=== PATIENT | male | born 1975 | race Caucasian/White ===

== ENCOUNTER 2020-01-30 09:12 | Outpatient (REF) | payer OTHER, SELFPAY ==
[2020-01-30 11:50] LABS: Alanine Aminotransferase 22 U/L (0-40); Anion Gap 13 (12-20); Aspartate Amino Transferase 21 U/L (5-37); Blood Urea Nitrogen 13 mg/dL (9-16); Calcium 9.4 mg/dL (8.4-10.2); Carbon Dioxide 28 mmol/L (22-29); Chloride 102 mmol/L (96-108); Cholesterol 187 mg/dL; Estimated Glomerular Filt Rate > 60; Glucose Fasting 93 mg/dL (60-99); HDL Cholesterol 44 mg/dL; LDL Cholesterol Calculated 119 mg/dl; Potassium 4.3 mmol/l (3.3-5.1); Sodium 139 mmol/L (135-145); Triglycerides 123 mg/dL
[2020-01-30 11:58] LABS: Free T4 (Free Thyroxine) 0.98 ng/dL (0.71-1.85); Thyroid Stimulating Hormone 7.59 mIU/mL (0.32-4.0)
== END 2020-01-30 09:13 | disposition home or self-care (01) ==
LOC: HO.HMGCLDS 09:12
PROVIDERS: PCP Internal Medicine; Visit Provider Internal Medicine
DX: Z00.01 Encounter for general adult medical examination with abnormal findings (principal); E03.9 Hypothyroidism, unspecified; G47.33 Obstructive sleep apnea (adult) (pediatric); E66.01 Morbid (severe) obesity due to excess calories; I10 Essential (primary) hypertension
CPT/HCPCS: 80048; 80061; 84439; 84443; 84450; 84460

== ENCOUNTER 2020-08-13 08:32 | Outpatient (REF) | payer OTHER, SELFPAY ==
[2020-08-13 12:10] LABS: Free T4 (Free Thyroxine) 0.71 ng/dL (0.71-1.85); Thyroid Stimulating Hormone 13.03 uIU/mL (0.32-4.0)
[2020-08-13 12:16] LABS: Anion Gap 13 (12-20); Blood Urea Nitrogen 14 mg/dL (9-16); Calcium 9.5 mg/dL (8.4-10.2); Carbon Dioxide 27 mmol/L (22-29); Chloride 103 mmol/L (96-108); Cholesterol 190 mg/dL; Estimated Glomerular Filt Rate > 60; Glucose Fasting 91 mg/dL (60-99); HDL Cholesterol 45 mg/dL; LDL Cholesterol Calculated 121 mg/dl; Potassium 4.2 mmol/L (3.3-5.1); Sodium 139 mmol/L (135-145); Triglycerides 123 mg/dL
== END 2020-08-13 08:33 | disposition home or self-care (01) ==
LOC: HO.HMGCLDS 08:32
PROVIDERS: PCP Internal Medicine; Visit Provider Internal Medicine
DX: E03.9 Hypothyroidism, unspecified (principal); E66.01 Morbid (severe) obesity due to excess calories; I10 Essential (primary) hypertension
CPT/HCPCS: 36415; 80048; 80061; 84439; 84443

== ENCOUNTER 2020-08-21 08:39 | Outpatient (REF) | payer OTHER, SELFPAY ==
--- NOTE | ~2020-08-21 | XR_ITS ---
EXAMINATION: XR SHOULDER, RIGHT CLINICAL INFORMATION: Strain of unspecified muscle, fascia, and tendon. COMPARISON: None TECHNIQUE: Grashey, scapular Y, and axillary views of the right shoulder. FINDINGS: No acute fracture or dislocation. Mild glenohumeral joint space narrowing with tiny posterior marginal osteophytes. Along the inferior margin of the glenoid there is a 0.5 cm ossification which could represent a loose body versus unfused osteophyte. No lytic or blastic osseous lesion. XR/XR shoulder RT min 2V IMPRESSION: Mild glenohumeral osteoarthritis. Along the inferior margin of the glenoid there is a 0.5 cm loose body versus unfused osteophyte.
== END 2020-08-21 08:40 | disposition home or self-care (01) ==
LOC: HO.HOSX 08:39
PROVIDERS: Visit Provider Physician Assistant
DX: S46.911D Strain of unspecified muscle, fascia and tendon at shoulder and upper arm level, right arm, subsequent encounter (principal); M75.80 Other shoulder lesions, unspecified shoulder
CPT/HCPCS: 20610; 73030; 99202

== ENCOUNTER 2020-09-04 12:32 | Outpatient (REF) | payer OTHER, SELFPAY ==
--- NOTE | ~2020-09-04 | MR_ITS ---
EXAMINATION: MR SHOULDER WITHOUT CONTRAST, RIGHT CLINICAL INFORMATION: Injury, pain. COMPARISON: None TECHNIQUE: MRI of the shoulder without contrast was performed on a high-field scanner. FINDINGS: ROTATOR CUFF: Mild supraspinatus tendinosis. Infraspinatus, teres minor is intact. Mild subscapularis tendinosis with deep surface fraying/partial tearing. No muscle atrophy or fatty infiltration. BICEPS: Intact. CORACOACROMIAL ARCH: The undersurface of the acromion is mildly curved with no subacromial spur. The acromioclavicular joint is normal. LABRUM/CAPSULE: No focal labral tear is seen. Mild edema and thickening of the inferior capsule/ligament. GLENOHUMERAL JOINT/MARROW: No fracture. Small joint fluid. No suspicious marrow signal changes. MR/MR shoulder RT wo con IMPRESSION: 1. Mild supraspinatus tendinosis. Mild subscapularis tendinosis with articular-sided fraying/partial tearing. 2. Edema and thickening of the inferior capsule/ligament, could be related to injury or capsulitis.
== END 2020-09-04 12:33 | disposition home or self-care (01) ==
LOC: HO.MRI 12:32
PROVIDERS: PCP Internal Medicine; Visit Provider Hospitalist
DX: S46.911D Strain of unspecified muscle, fascia and tendon at shoulder and upper arm level, right arm, subsequent encounter (principal)
CPT/HCPCS: 73221

== ENCOUNTER → 2020-09-23 10:52 | Outpatient (BNVA) | payer OTHER, SELFPAY | PROVIDERS: PCP Internal Medicine; Visit Provider Physician Assistant | DX: M75.41 Impingement syndrome of right shoulder (principal) | CPT/HCPCS: 99212 ==

== ENCOUNTER → 2020-11-18 09:39 | Outpatient (BNVA) | payer OTHER, SELFPAY | PROVIDERS: Visit Provider Physician Assistant | DX: M75.41 Impingement syndrome of right shoulder (principal) | CPT/HCPCS: 99212 ==

== ENCOUNTER 2020-11-19 09:00 | Outpatient (RCR) | payer OTHER, SELFPAY ==
--- NOTE | 2020-09-09 10:28 | MHC.PT.EP ---
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 Pt IS RIGHT HAND DOMINANT- HE PRESENTS WITH LIMITED Rt SH ROM, DECR STRENGTH, DECR POSTURAL AWARENESS, AND PAIN W PALP Rt ANT SH/ (+) IMPINGEMENT SIGN. FUNCTIONALLY, Pt IS LIMITED W SL Rt, LIFTING, CARRYING HEAVIER ITEMS, AND MORE PHYSICALLY DEMANDING TASKS. Pt WOULD BENEFIT FROM PT TO ADDRESS Rt SH IMPINGEMENT SYNDROME AND FINDINGS ON MRI (Mild supraspinatus tendinosis. Mild subscapularis tendinosis with articular-sided fraying/partial tearing. PLEASE SEE RESULTS ABOVE) AND ASSIST Pt W REGAINING FUNCTIONAL INDEPENDENCE. 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 Manual therapy to restore motion and function. Therapeutic exercise to improve strength and flexibility. Neuromuscular re-education for posture and balance. Therapeutic activities to return to functional activities of daily living. Electronically signed by: Bernie August,PT Please sign and return to therapist. Thank you for your referral.
--- NOTE | 2020-12-23 16:35 | MHC.PT.DC ---
[facility] [place] Office [place] Office [place] Office [address] Nancie Son 140 [facility] [phone] F: [phone] F: [phone] F: [phone] F: [phone] Physical Therapy Discharge Report Diagnosis: IMPINGEMENT OF THE RIGHT SHOULDER Date of Surgery: Date of Evaluation: 09/09/20 Date of Discharge: 11/19/20 Treatments to Date: 20 Cancellations to Date: 0 No Shows to Date: 0 Discharge Status: Achieved Goals Improved Function Independent with HEP Discharge Summary: Electronically signed by: Rex Proctor PT. Please sign and return to therapist. Thank you for your referral.
== END 2020-12-23 16:36 | disposition home or self-care (01) ==
LOC: HO.PTCHIC 09:00
PROVIDERS: PCP Internal Medicine; Visit Provider Physician Assistant
DX: M77.8 Other enthesopathies, not elsewhere classified (principal); M75.41 Impingement syndrome of right shoulder; M75.80 Other shoulder lesions, unspecified shoulder
CPT/HCPCS: 97110; 97140; 97161; 97530

== ENCOUNTER 2020-12-25 08:58 | Outpatient (REF) | payer OTHER, SELFPAY ==
[2020-12-25 12:07] LABS: Thyroid Stimulating Hormone 0.14 uIU/mL (0.32-4.0)
[2020-12-26 09:42] LABS: Thyroid Peroxidase Antibodies 253 IU/mL (<9)
== END 2020-12-25 08:59 | disposition home or self-care (01) ==
LOC: HO.HMGCLDS 08:58
PROVIDERS: PCP Internal Medicine; Visit Provider Internal Medicine
DX: E03.9 Hypothyroidism, unspecified (principal)
CPT/HCPCS: 36415; 84439; 84443; 86376

== ENCOUNTER 2021-10-12 06:14 | Outpatient (REF) | payer OTHER, SELFPAY ==
[2021-10-12 12:30] LABS: Free T4 (Free Thyroxine) 0.75 ng/dL (0.71-1.85); Thyroid Stimulating Hormone 12.24 uIU/mL (0.32-4.0)
[2021-10-12 12:41] LABS: Alanine Aminotransferase 20 U/L (0-40); Anion Gap 12 (12-20); Aspartate Amino Transferase 20 U/L (5-37); Blood Urea Nitrogen 16 mg/dL (9-16); Calcium 8.9 mg/dL (8.4-10.2); Carbon Dioxide 26 mmol/L (22-29); Chloride 104 mmol/L (96-108); Cholesterol 186 mg/dL; Estimated Glomerular Filt Rate > 60; Glucose Fasting 106 mg/dL (60-99); HDL Cholesterol 35 mg/dL; LDL Cholesterol Calculated 126 mg/dl; Potassium 4.2 mmol/L (3.3-5.1); Sodium 138 mmol/L (135-145); Triglycerides 126 mg/dL
[2021-10-14 11:02] LABS: Thyroid Peroxidase Antibodies 387 IU/mL (<9)
== END 2021-10-12 06:15 | disposition home or self-care (01) ==
LOC: HO.HMGCLDS 06:14
PROVIDERS: PCP Internal Medicine; Visit Provider Internal Medicine
DX: Z00.01 Encounter for general adult medical examination with abnormal findings (principal); E03.9 Hypothyroidism, unspecified; I10 Essential (primary) hypertension; E66.01 Morbid (severe) obesity due to excess calories
CPT/HCPCS: 36415; 80048; 80061; 84439; 84443; 84450; 84460; 86376

== ENCOUNTER 2021-12-15 08:36 | Outpatient (REF) | payer OTHER, SELFPAY ==
[2021-12-15 12:02] LABS: Free T4 (Free Thyroxine) 0.75 ng/dL (0.71-1.85); Thyroid Stimulating Hormone 20.37 uIU/mL (0.32-4.0)
[2021-12-16 20:51] LABS: Thyroid Peroxidase Antibodies 739 IU/mL (<9)
== END 2021-12-15 08:37 | disposition home or self-care (01) ==
LOC: HO.HMGCLDS 08:36
PROVIDERS: PCP Internal Medicine; Visit Provider Internal Medicine
DX: E03.9 Hypothyroidism, unspecified (principal)
CPT/HCPCS: 36415; 84439; 84443; 86376

== ENCOUNTER 2022-02-09 10:25 | Outpatient (REF) | payer OTHER, SELFPAY ==
[2022-02-09 12:39] LABS: Estimated Average Glucose 117 mg/dL; Hemoglobin A1c % 5.7 %
[2022-02-09 13:08] LABS: Alanine Aminotransferase 16 U/L (0-40); Anion Gap 17 (12-20); Aspartate Amino Transferase 17 U/L (5-37); Blood Urea Nitrogen 14 mg/dL (9-16); Calcium 9.2 mg/dL (8.4-10.2); Carbon Dioxide 25 mmol/L (22-29); Chloride 101 mmol/L (96-108); Cholesterol 199 mg/dL; Estimated Glomerular Filt Rate > 60; Glucose Fasting 85 mg/dL (60-99); HDL Cholesterol 39 mg/dL; LDL Cholesterol Calculated 133 mg/dl; Potassium 4.7 mmol/L (3.3-5.1); Sodium 138 mmol/L (135-145); Triglycerides 135 mg/dL
== END 2022-02-09 10:26 | disposition home or self-care (01) ==
LOC: HO.HMGCLDS 10:25
PROVIDERS: PCP Internal Medicine; Visit Provider Internal Medicine
DX: Z00.01 Encounter for general adult medical examination with abnormal findings (principal); R73.01 Impaired fasting glucose; E66.01 Morbid (severe) obesity due to excess calories; E03.9 Hypothyroidism, unspecified
CPT/HCPCS: 36415; 80048; 80061; 83036; 84439; 84443; 84450; 84460

== ENCOUNTER → 2022-05-05 10:02 | Outpatient (BNVA) | payer OTHER, SELFPAY | PROVIDERS: PCP Internal Medicine; Visit Provider Nurse Practitioner Family | DX: G47.33 Obstructive sleep apnea (adult) (pediatric) (principal); R06.83 Snoring; E66.01 Morbid (severe) obesity due to excess calories; Z68.41 Body mass index [BMI] 40.0-44.9, adult | CPT/HCPCS: 99202 ==

== ENCOUNTER 2022-05-17 08:36 | Outpatient (REF) | payer OTHER, SELFPAY ==
[2022-05-17 12:06] LABS: Alanine Aminotransferase 20 U/L (0-40); Aspartate Amino Transferase 17 U/L (5-37); Cholesterol 197 mg/dL; HDL Cholesterol 44 mg/dL; LDL Cholesterol Calculated 131 mg/dl; Triglycerides 113 mg/dL
[2022-05-17 12:09] LABS: Free T4 (Free Thyroxine) 0.81 ng/dL (0.71-1.85); Thyroid Stimulating Hormone 7.11 uIU/mL (0.32-4.0)
== END 2022-05-17 08:37 | disposition home or self-care (01) ==
LOC: HO.HMGCLDS 08:36
PROVIDERS: PCP Internal Medicine; Visit Provider Internal Medicine
DX: E03.9 Hypothyroidism, unspecified (principal); E66.01 Morbid (severe) obesity due to excess calories; E78.5 Hyperlipidemia, unspecified
CPT/HCPCS: 36415; 80061; 84439; 84443; 84450; 84460

== ENCOUNTER → 2022-06-08 09:49 | Outpatient (REF) | payer OTHER, SELFPAY | LOC: HO.SL 09:49 | PROVIDERS: Visit Provider Nurse Practitioner Family | DX: G47.33 Obstructive sleep apnea (adult) (pediatric) (principal); R06.83 Snoring; E66.01 Morbid (severe) obesity due to excess calories | CPT/HCPCS: 95806 ==

== ENCOUNTER 2022-06-16 10:26 | Outpatient (AMB) | payer OTHER, SELFPAY ==
--- NOTE | 2022-06-16 10:30 | A.OFFPC_ITS ---
Vital Signs 06/16/22 10:31 Height 5 ft 6 in Weight 264 lb BMI 42.6 BP 132/90 H Blood Pressure Location Lt brachial Position Sitting Pulse 78 Pulse Source Pulse Oximeter Pulse Oximetry (%) 99 Oxygen Delivery Method Room Air Intake Visit Reasons: 3 month follow up/ R/S from 06/07 Intake Note: Pt is here today for his 3 months f/u labs Allergies Penicillins Allergy (Unknown, Verified 04/24/25 12:07) hives Tobacco use date assessed: 06/16/22 [facility] Medical History Toenail deformity Dyslipidemia Impaired fasting glucose Post-COVID syndrome Intellectual disability Morbid obesity History of depression History of migraine Obstructive sleep apnea Acquired hypothyroidism Surgical History Hx of colonoscopy Hx of laparoscopic gastric banding Family History Father Myocardial infarction CVD (cardiovascular disease) Mother No problems noted. Brother No problems noted. Brother No problems noted. 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 1. Little interest or pleasure in doing things: not at all 2. Feeling down, depressed, or hopeless: not at all 3. Trouble falling or staying asleep, or sleeping too much: not at all 4. Feeling tired or having little energy: not at all 5. Poor appetite or overeating: not at all 6. Feeling bad about yourself - or that you are a failure or have let yourself or your family down: not at all 7. Trouble concentrating on things, such as reading the newspaper or watching television: not at all 8. Moving or speaking so slowly that other people could have noticed. Or the opposite - being so fidgety or restless that you have been moving around a lot more than usual: not at all 9. Thoughts that you would be better off or of hurting yourself in some way: not at all Total score: 0 Source: Developed by Drs. Tylor Strickland, Yamileth Last, Ean Gilmore and colleagues, with an educational lauri from [employer]. Thrive Questionnaire Declines Thrive assessment: No Date Thrive assessed: 06/16/22 I am a: Patient What is your living situation today?: I have a steady place to live Within the past 12 months, did the food you bought not last and you didn't have the money to get more?: Never true Within the past 12 months, did you worry whether your food would run out before you got money to buy more?: Never true Do you have trouble paying for medicines?: No Do you have trouble getting transportation to medical appointments?: No Do you have trouble paying your heating and electricity bill?: No Do you have trouble taking care of your child, family member or friend?: No Do you have trouble with day-to-day activities such as bathing, preparing meals, shopping, managing finances, etc.?: No Are you currently unemployed and looking for a job?: No Are you interested in more education?: No AUDIT C Alcohol Use Questionnaire (AUDIT-C) 1. How often do you have a drink containing alcohol?: Never Total Score: 0 ALEJANDRA-7 AMB Questionnaire ALEJANDRA-7 Date ALEJANDRA - 7 assessed: 06/16/22 Feeling nervous, anxious, or on edge: 0 = Not at all Not being able to stop or control worryin = Not at all Worrying too much about different things: 0 = Not at all Trouble relaxin = Not at all Being so restless that it is hard to sit still: 0 = Not at all Becoming easily annoyed or irritable: 0 = Not at all Feeling afraid as if something awful might happen: 0 = Not at all Total ALEJANDRA-7 score (0-4 normal; 5-9 mild; 10-14 moderate; 15-21 severe): 0 Source: Developed by Drs. Tylor Strickland, Yamileth Last, Ean Gilmore and colleagues, with an educational lauri from [employer]. Physical exam (Primary Care) Vital Signs: Last Vital Signs Pulse 78 06/16/22 10:31 BP 132/90 H 06/16/22 10:31 Pulse Ox 99 06/16/22 10:31 Oxygen Delivery Method Room Air 06/16/22 10:31 BMI result Body Mass Index 42.6 Tobacco/Smoking Status: Tobacco use Status Tobacco use date assessed 06/16/22 06/16/22 10:35 Patient Tobacco Use Status Never used Tobacco 06/16/22 10:35 e-Cigarette/Vaping Use Never Used 06/16/22 10:35 PHQ-9: PHQ-9 Score PHQ-9: Total score 0 05/12/25 00:19 Thrive Assessment: Date of Thrive Assessment Date Thrive assessed 06/16/22 06/16/22 11:13 Coding Level of Care Code Admin Sign Off/No Billing Diagnoses Acquired hypothyroidism E03.9
[2022-06-16 10:31] VITALS: BP 132/90; PULSE 78; O2SAT 99; BMI 42.6
== END 2022-06-16 11:07 | disposition home or self-care (01) ==
LOC: HO.HMGC 10:26
PROVIDERS: PCP Internal Medicine; Visit Provider Internal Medicine
DX: E03.9 Hypothyroidism, unspecified (principal)
CPT/HCPCS: 99499

== ENCOUNTER → 2022-06-23 11:34 | Outpatient (BNVA) | payer OTHER, SELFPAY | PROVIDERS: PCP Internal Medicine; Visit Provider Nurse Practitioner Family | DX: R06.83 Snoring (principal); G47.33 Obstructive sleep apnea (adult) (pediatric); E66.01 Morbid (severe) obesity due to excess calories; Z98.84 Bariatric surgery status | CPT/HCPCS: 99212 ==

== ENCOUNTER 2022-09-14 08:27 | Outpatient (REF) | payer OTHER, SELFPAY ==
[2022-09-14 11:58] LABS: Free T4 (Free Thyroxine) 0.99 ng/dL (0.71-1.85); Thyroid Stimulating Hormone 1.76 uIU/mL (0.32-4.0)
== END 2022-09-14 08:28 | disposition home or self-care (01) ==
LOC: HO.HMGCLDS 08:27
PROVIDERS: PCP Internal Medicine; Visit Provider Internal Medicine
DX: E03.9 Hypothyroidism, unspecified (principal)
CPT/HCPCS: 36415; 84439; 84443

== ENCOUNTER → 2022-09-26 11:24 | Outpatient (BNVA) | payer OTHER, SELFPAY | PROVIDERS: PCP Internal Medicine; Visit Provider Nurse Practitioner Family | DX: G47.33 Obstructive sleep apnea (adult) (pediatric) (principal) | CPT/HCPCS: 99212 ==

== ENCOUNTER 2022-12-28 11:09 | Outpatient (AMB) | payer OTHER, SELFPAY ==
--- NOTE | 2022-12-28 11:26 | MHC.OFFVIS ---
Intake Vital Signs 12/28/22 11:28 Weight 264 lb 2 oz BP 122/82 Blood Pressure Location Rt brachial Position Sitting Pulse 73 Pulse Source Pulse Oximeter Pulse Oximetry (%) 97 Intake Visit Reasons: 3m follow up TREVON/SNORING - Confirmed Intake Note: F/U TREVON Associate Curator Required: No Allergies Penicillins Allergy (Unknown, Verified 01/03/23 08:56) hives HPI HPI Comments History of Present Illness Details 46 y/o male patient presents for follow up of TREVON on CPAP. The home sleep study result was significant for a mild degree of sleep apnea. The AHI was 10/hr and oxygen trinity was 84%. Pt started APAP [id number]. He is compliant CPAP. The average usage hours 7 hrs. The residual AHI was 0.3 Pt is very happy about CPAP. He sleeps well with it and no snoring, refreshed in the morning and has more energy during daytime. [facility] Medical History Dyslipidemia Impaired fasting glucose Post-COVID syndrome Intellectual disability Right shoulder tendonitis Morbid obesity History of depression History of migraine Obstructive sleep apnea Acquired hypothyroidism Surgical History Hx of laparoscopic gastric banding Family History Father Myocardial infarction CVD (cardiovascular disease) Mother No problems noted. Brother No problems noted. Brother No problems noted. 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 needs: No Hearing needs: No Vision needs: Yes Review of Systems Const All systems reviewed & are unremarkable except as noted in HPI and below ENT Reports Normal hearing present Neuro Reports Normal hearing present Physical Exam Vital Signs: Last Vital Signs Pulse 73 12/28/22 11:28 BP 122/82 12/28/22 11:28 Pulse Ox 97 12/28/22 11:28 Const General: cooperative Nutritional Appearance: obese Orientation/consciousness: patient oriented x3 HEENT Throat: Yes other (mallampati grade 4) Neck Neck: Yes full ROM and Yes supple Resp Effort & Inspection: normal respiratory effort and able to speak in complete sentences Neuro General: patient oriented x3, gait normal and moves all extremities Cranial nerves: Yes Bilaterally intact EOM present, Yes Normal facial strength present, Yes Midline tongue present, Yes Normal hearing present, Yes Ability to bilaterally rotate head present and Yes Ability to bilaterally elevate shoulders present Cognition (Neuro): normal cognition Psych Appearance: grossly normal Mental Status: mental status grossly normal Speech and movement: Normal speech and movement present Affect: normal affect Attitude: cooperative Assessment & Plan Assessment & Plan (1) Obstructive sleep apnea: Comment: A mild degree of sleep apnea. The AHI was 10/hr and oxygen trinity was 84%.started CPAP 07/2022, Code(s): G47.33 - Obstructive sleep apnea (adult) (pediatric) Plan Continue to use APAP [id number] as patient experiences good clinical effects. Stressed compliance, use CPAP nightly and more than 4 hours. Wt reduction advised. Coding Level of Care Code Est Pt Level 3 (47146) Diagnoses Obstructive sleep apnea G47.33
[2022-12-28 11:28] VITALS: BP 122/82; PULSE 73; O2SAT 97
== END 2022-12-28 12:02 | disposition home or self-care (01) ==
PROVIDERS: PCP Internal Medicine; Visit Provider Nurse Practitioner Family
DX: G47.33 Obstructive sleep apnea (adult) (pediatric) (principal)
CPT/HCPCS: 99213

== ENCOUNTER → 2022-12-28 11:09 | Outpatient (BNVA) | payer OTHER, SELFPAY | PROVIDERS: PCP Internal Medicine; Visit Provider Nurse Practitioner Family | DX: G47.33 Obstructive sleep apnea (adult) (pediatric) (principal) | CPT/HCPCS: 99212 ==

== ENCOUNTER 2023-01-03 08:47 | Outpatient (REF) | payer OTHER, SELFPAY ==
[2023-01-03 09:46] LABS: MANUAL DIFF FLAG NO
[2023-01-03 10:35] LABS: Basophils Absolute Auto 0.1 X10*3/uL (0.0-0.2); Basophils Percent Auto 0.6 % (0-2); Eosinophils Absolute Auto 0.1 X10*3/uL (0.0-0.4); Eosinophils Percent Auto 1.8 % (0-4); Hematocrit 50.3 % (42.0-52.0); Hemoglobin 16.8 g/dl (14.0-18.0); Imm Gran Abs Auto 0.02 X10*3/uL (0.00-0.03); Imm Gran Pct Auto 0.3 % (0.0-0.4); Lymphocytes Percent Auto 26.1 % (20-40); Mean Corpuscular HGB Conc 33.4 g/dl (31.0-36.0); Mean Corpuscular Hemoglobin 28.9 pg (27.0-33.0); Mean Corpuscular Volume 86.6 fL (80.0-98.0); Mean Platelet Volume 8.4 fL (9.4-12.4); Monocytes Absolute Auto 0.5 X10*3/uL (0.1-1.2); Monocytes Percent Auto 6.3 % (2-11); Neutrophils Percent Auto 64.9 % (45-73); Platelet Count 301 X10*3/uL (160-400); Red Blood Count 5.81 X10*6/uL (4.60-5.80); Red Cell Distribution Width 13.5 % (11.0-16.0); White Blood Count 7.7 X10*3/uL (4.8-10.8)
[2023-01-03 11:05] LABS: Alanine Aminotransferase 23 U/L (0-40); Albumin Level 4.3 g/dL (3.5-5.0); Alkaline Phosphatase 36 U/L (39-117); Anion Gap 15 (12-20); Aspartate Amino Transferase 18 U/L (5-37); Bilirubin Total 0.5 mg/dL (0.0-1.0); Blood Urea Nitrogen 13 mg/dL (9-16); Calcium 9.5 mg/dL (8.4-10.2); Carbon Dioxide 25 mmol/L (22-29); Chloride 101 mmol/L (96-108); Estimated Glomerular Filt Rate > 60; Glucose Random 97 mg/dL (60-115); Potassium 4.1 mmol/L (3.3-5.1); Sodium 137 mmol/L (135-145); Total Protein 7.8 g/dL (6.5-8.0)
== END 2023-01-03 08:48 | disposition home or self-care (01) ==
LOC: HO.LAB 08:47
PROVIDERS: PCP Internal Medicine; Visit Provider Nurse Practitioner
DX: Z01.818 Encounter for other preprocedural examination (principal); F79 Unspecified intellectual disabilities; G47.33 Obstructive sleep apnea (adult) (pediatric); E66.01 Morbid (severe) obesity due to excess calories
CPT/HCPCS: 36415; 80053; 85025

== ENCOUNTER 2023-02-24 08:54 | Outpatient (AMB) | payer OTHER, SELFPAY ==
--- NOTE | 2023-02-24 08:56 | A.OFFPC_ITS ---
Vital Signs 02/24/23 08:57 Height 5 ft 6 in Weight 270 lb 4 oz BMI 43.6 BP 130/88 Blood Pressure Location Rt brachial Position Sitting Pulse 78 Pulse Source Pulse Oximeter Pulse Oximetry (%) 98 Oxygen Delivery Method Room Air Intake Visit Reasons: PE/Ok by Estephania Intake Note: pt is here for a PE Allergies Penicillins Allergy (Unknown, Verified 02/24/23 09:11) hives Medication List - Last Reconciled 02/24/23 by Chayito Diaz MD levothyroxine 175 mcg PO DAILY multivitamin PO every morning; peg 3350-electrolytes 236-22.74-6.74 -5.86 gram (Golytely) 240 mL PO Q10M 1 day vitamin D3-vitamin K2 25 mcg (1,000 unit)-90 mcg 1 tab PO DAILY Tobacco use date assessed: 02/24/23 Dental Screening Dental Screen Date: 02/24/23 Did you have a dental visit in the last 12 months?: Yes Did you have a dental problem in the last 6 months where you did not have access to dental care?: No Was dental information given to patient?: Patient has dentist HPI PE/Ok by Estephania HPI Details 47-year-old male with morbid obesity, Youssef shimoto's thyroiditis with acquired hypothyroidism, has dyslipidemia, prediabetes and give sleep appt currently followed by the sleep clinic, here today for physical exam. He is already scheduled for screening colonoscopy at the end of the month. Reviewed recent fasting labs which showed lipids within normal limits, thyroid levels are now within normal limits, on last check September 2022. Goes of intermittent episodes of frontal headaches described as an ache denies any accompanying blurred vision, no lightheadedness or weakness. Takes an Excedrin migraine which affords relief [facility] Medical History (Updated 02/24/23 @ 09:14 by Chayito Diaz MD) Dyslipidemia Impaired fasting glucose Post-COVID syndrome Intellectual disability Morbid obesity History of depression History of migraine Obstructive sleep apnea Acquired hypothyroidism Surgical History Hx of laparoscopic gastric banding Family History Father Myocardial infarction CVD (cardiovascular disease) Mother No problems noted. Brother No problems noted. Brother No problems noted. 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 Tylor Strickland, Yamileth Last, Ean Gilmore and colleagues, with an educational lauri from [email or web address]. Review of Systems Const Denies fatigue, Denies fever(s), Denies night sweats, Denies poor appetite and Denies weight loss Eyes Details: glasses Reports requires corrective lenses ENT Reports Normal hearing present, Denies dental pain, Denies dysphagia, Denies hearing loss, Denies mouth pain, Denies odynophagia, Denies throat swelling, Denies tongue swelling and Reports other (Dentition adequate) Card Reports no additional complaints Resp Reports no additional complaints GI Denies abdominal pain, Denies melena, Denies bloating, Denies hematochezia, Denies constipation, Denies GI cramping, Denies dysphagia, Denies excessive flatus, Denies early satiety, Denies heartburn, Denies diarrhea, Denies nausea, Denies odynophagia, Denies vomiting and Denies hematemesis Reports no additional complaints Musc Reports no additional complaints Skin/Breast Denies pruritus, Denies lesions, Denies rash and Denies jaundice Neuro Reports Normal hearing present and Denies Abnormal speech present Psych Reports no additional complaints Endo Denies fatigue John/Lymph Denies easy bleeding and Denies easy bruising Aller/Immun Denies throat swelling and Denies tongue swelling Physical exam (Primary Care) Vital Signs: Last Vital Signs Pulse 78 02/24/23 08:57 BP 130/88 02/24/23 08:57 Pulse Ox 98 02/24/23 08:57 Oxygen Delivery Method Room Air 02/24/23 08:57 BMI result Body Mass Index 43.6 BMI Assessment/Plan discussion: High BMI High, discussed plan: lifestyle, weight reduction, dietary and physical activity Tobacco/Smoking Status: Tobacco use Status Tobacco use date assessed 02/24/23 02/24/23 09:01 Patient Tobacco Use Status Never used Tobacco 02/24/23 09:01 e-Cigarette/Vaping Use Never Used 02/24/23 09:01 Thrive Assessment: Date of Thrive Assessment Date Thrive assessed 06/16/22 02/24/23 09:01 Const General: cooperative, comfortable and no acute distress Nutritional Appearance: obese morbidly obese Orientation/consciousness: patient oriented x3 HENMT Ears: hearing grossly normal bilaterally and external ears normal General nose exam: Normal external nose present Mouth: oropharynx normal and moist mucous membranes Throat: Yes posterior oropharynx normal Eyes General: appearance normal, both eyes and all related structures Conjunctivae: conjunctivae normal Pupils: Equal, round and reactive pupils present EOM: EOMs intact bilaterally Neck Other: Thyroid non Palpable and nontender Neck: Yes full ROM, Yes no lymphadenopathy and Yes supple Chest Chest palpation & inspection: normal inspection of the chest Resp Effort & Inspection: normal respiratory effort and able to speak in complete sentences Auscultation: clear to auscultation bilaterally Cardio Rate: regular rate Rhythm: regular rhythm Heart sounds: S1 normal heart sound present and S2 normal heart sound present GI Inspection: Yes Abdominal panniculus present and Yes obesity Palpation (GI): Soft to palpation, nontender and no masses Auscultation: normal bowel sounds General: Yes no CVA tenderness Male General Exam: Yes normal external exam Back/Spine/Pelvis Back: no CVA tenderness and No back tenderness Skin General skin exam: no rashes or lesions noted Neuro General: patient oriented x3, gait normal, tone normal, moves all extremities, Normal light touch and pain sensation and no focal motor deficits Cranial nerves: Yes Equal, round and reactive pupils present and Yes Normal hearing present Cognition (Neuro): normal cognition Speech: No Abnormal speech present Gait exam (Neuro): Normal gait present Motor exam (neuro): 5/5 motor strength present throughout Extrem General: Yes full ROM, Yes no joint enlargement, Yes no pedal edema and Yes normal gait Psych Appearance: grossly normal and well kempt Mental Status: mental status grossly normal Speech and movement: Normal speech and movement present Affect: normal affect Attitude: cooperative Thought process: Normal thought process present Thought content: Normal thought content present Results Reviewed Results Reviewed: Name: BrightgopiChele Som Age/Sex: 47/M : 1975 Unit#: [id number] Attend Dr: Timothy ANP-C Re01/03/23 Status: DEP REF Location: .LAB Disch: SPEC : [id number] JD: 01/03/23 STATUS: COMP REQ : [id number] RECD: 01/03/[address]: Timothy ANP-C COMP: 01/03/23 ENTERED: 01/03/[address]: Chayito Diaz MD ORDERED: CMP Test Result Flag Reference Site Sodium 137 135-145 mmol/L Potassium 4.1 3.3-5.1 mmol/L CL 101 96-108 mmol/L CO2 25 22-29 mmol/L Gap 15 12-20 BUN 13 9-16 mg/dL Creat 1.15 0.5-1.4 mg/dL EGFR > 60 NOTE: For -Citizen Of [place] individuals, multiply the result by 1.210. Chronic Kidney Disease: Estimated GFR < 60 mL/min/1.73m2 Severe Kidney Disease: Estimated GFR < 15 mL/min/1.73m2 Glucose, Random 97 60-115 mg/dL CA 9.5 8.4-10.2 mg/dL Total Bili 0.5 0.0-1.0 mg/dL AST (GOT) 18 5-37 U/L ALT (GPT) 23 0-40 U/L Protein, Total 7.8 6.5-8.0 g/dL Alb 4.3 3.5-5.0 g/dL Alk Phos 36 L 39-117 U/L Name: Chele Knight Age/Sex: 47/M : 1975 Unit#: [id number] Attend Dr: Timothy ANP-C Re01/03/23 Status: DEP REF Location: .LAB Disch: SPEC : [id number] JD: 01/03/23 STATUS: COMP REQ : [id number] RECD: 01/03/[address]: Timothy ANP-C COMP: 01/03/23 ENTERED: 01/03/[address]: Chayito Diaz MD ORDERED: CBC Auto Diff Test Result Flag Reference Site WBC 7.7 4.8-10.8 X10*3/uL RBC 5.81 H 4.60-5.80 X10*6/uL HGB 16.8 14.0-18.0 g/dl HCT 50.3 42.0-52.0 % MCV 86.6 80.0-98.0 fL MCH 28.9 27.0-33.0 pg MCHC 33.4 31.0-36.0 g/dl RDW 13.5 11.0-16.0 % PLT 301 160-400 X10*3/uL Laboratory Tests 05/17/22 09/14/22 08:46 08:03 Triglycerides 113 Cholesterol 197 LDL Cholesterol, Calc 131 HDL Cholesterol 44 TSH 1.76 Free T4 0.99 Assessment and Plan Assessment & Plan (1) Annual visit for general adult medical examination with abnormal findings: Code(s): Z00.01 - Encounter for general adult medical examination with abnormal findings Plan: Reviewed recent fasting labs patient. Recheck another thyroid level. Continue with regular dental visit every 6 months and regular eye exams, sees Dr. Hair yearly Take adequate calcium in diet and vitamin-D 3 at 2000 IU per cap once a day, in addition to weight-bearing exercises to help maintain good muscle tone and weight control. Instructed to do self-testicular except check for any mass. Has an appointment for screening colonoscopy later this month. Up-to-date with his flu shot, does not want to get COVID booster (2) Obstructive sleep apnea: Comment: A mild degree of sleep apnea. The AHI was 10/hr and oxygen trinity was 84%.started CPAP 07/2022, Code(s): G47.33 - Obstructive sleep apnea (adult) (pediatric) Plan: Followed by [facility] sleep clinic , currently on CPAP (3) Acquired hypothyroidism: Code(s): E03.9 - Hypothyroidism, unspecified Plan: Will check another TSH, free T4 and thyroid peroxidase level, last thyroid levels in September 2022 were within currently on levothyroxine 175 mcg daily in a.m. (4) Dyslipidemia: Code(s): E78.5 - Hyperlipidemia, unspecified Plan: Reviewed last fasting lipid profile with patient with levels within normal limits . Continue with adherence to low-cholesterol diet and regular exercise, at least 30 minutes 3 to 4 times a week. Advised patient to make healthy food choices, eat more fruits, vegetables, whole grains, wild caught fish and low-fat dairy. Limit amount of meat and fried or fatty food products, as well as processed foods and fast foods. (5) Impaired fasting glucose: Code(s): R73.01 - Impaired fasting glucose Plan: Last fasting glucose was within normal limits. (6) Morbid obesity: Code(s): E66.01 - Morbid (severe) obesity due to excess calories Plan: Discussed need to increase activity and wt reduction. Recommended focusing on improving your health instead of dieting. : Eat Mediterranean diet, limit foods high in fat, sugar, and calories, eat slowly, pay attention to portion sizes, plan your meals ahead of time, start regular physical activity 150 minutes of moderate intensity exercise or 90 minutes/week of vigorous exercise and increase water intake. (7) Headache above the eye region: Code(s): R51.9 - Headache, unspecified Plan: Blood pressure is within normal limits, CBC, electrolytes are also within normal limits Advised to get his eyes checked, and could be that his CPAP is pressing on his forehead causing his headache. Advised to try taking Tylenol 500 mg per tablet or Excedrin, at onset of headache. Call if headache worsens or persists Orders: Orders Thyroid Peroxidase Antibodies Today E03.9 - Hypothyroidism, unspecified Free T4 (Free Thyroxine) Today E03.9 - Hypothyroidism, unspecified Thyroid Stimulating Hormone Today E03.9 - Hypothyroidism, unspecified Coding Level of Care Code Est Pt Prev Care 40-64y(09631) Diagnoses Annual visit for general adult medical examination with abnormal findings Z00.01 Obstructive sleep apnea G47.33 Acquired hypothyroidism E03.9 Dyslipidemia E78.5 Impaired fasting glucose R73.01 Morbid obesity E66.01 Headache above the eye region R51.9
[2023-02-24 08:57] VITALS: BP 130/88; PULSE 78; O2SAT 98; BMI 43.6
== END 2023-02-24 09:29 | disposition home or self-care (01) ==
PROVIDERS: PCP Internal Medicine; Visit Provider Internal Medicine
DX: Z00.00 Encounter for general adult medical examination without abnormal findings (principal); E66.01 Morbid (severe) obesity due to excess calories; Z68.41 Body mass index [BMI] 40.0-44.9, adult; G47.33 Obstructive sleep apnea (adult) (pediatric); E03.9 Hypothyroidism, unspecified; E78.5 Hyperlipidemia, unspecified; R73.01 Impaired fasting glucose; R51.9 Headache, unspecified
CPT/HCPCS: 99396

== ENCOUNTER 2023-02-24 09:32 | Outpatient (REF) | payer OTHER, SELFPAY ==
[2023-02-27 12:49] LABS: Thyroid Peroxidase Antibodies 423 IU/mL (<9)
== END 2023-02-24 09:33 | disposition home or self-care (01) ==
LOC: HO.HMGCLDS 09:32
PROVIDERS: PCP Internal Medicine; Visit Provider Internal Medicine
DX: E03.9 Hypothyroidism, unspecified (principal)
CPT/HCPCS: 36415; 84439; 84443; 86376

== ENCOUNTER 2023-03-07 06:26 | Day surgery (SDC) | payer OTHER, SELFPAY ==
[2023-03-01 14:10] VITALS: BMI 43.6
--- NOTE | 2023-03-06 08:58 | P.CONAN_ITS ---
Documented by User: Laura Beebe NP 03/06/23 08:59 HPI - Anesthesia Eval Consult details Narrative: 47yo M for Colonoscopy PMFSH Active Problems Active Problems: All Active Problems (Updated 02/24/23 @ 09:14 by Chayito Diaz MD) Dyslipidemia (Acute) Impaired fasting glucose (Acute) Intellectual disability (Acute) Morbid obesity (Acute) Obstructive sleep apnea (Acute) Acquired hypothyroidism (Acute) Past Medical History Medical History Dyslipidemia Impaired fasting glucose Post-COVID syndrome Intellectual disability Morbid obesity History of depression History of migraine Obstructive sleep apnea Acquired hypothyroidism Family History Family History Father Myocardial infarction CVD (cardiovascular disease) Mother No problems noted. Brother No problems noted. Brother No problems noted. Surgical History Surgical History Hx of laparoscopic gastric banding Social History Housing: Apartment Alcohol intake: former Patient Tobacco Use Status: Never used Tobacco e-Cigarette/Vaping Use: Never Used Have you been hit, kicked, punched, or otherwise hurt by someone within the past year? 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 Cognitive needs: No Hearing needs: No Vision needs: Yes Meds Allergies Allergy/AdvReac Type Severity Reaction Status Date / Time Penicillins Allergy Unknown hives Verified 02/24/23 09:11 Home Medications Medication Instructions Recorded Confirmed Last Taken Type multivitamin See Rx Instructions PO QAM 01/28/20 03/01/23 Unknown History vitamin D3 25 mcg (1,000 unit)-vit 1 tab PO DAILY 01/03/23 03/01/23 Unknown History K2 90 mcg disintegrating tablet Exam Height,Weight and Vital Signs: Height 5 ft 6 in Weight 122.47 kg Pertinent Lab Results Pertinent Lab Results: Laboratory Tests 01/03/23 09:46 WBC 7.7 Hgb 16.8 Hct 50.3 Plt Count 301 Sodium 137 Potassium 4.1 Chloride 101 Carbon Dioxide 25 BUN 13 Creatinine 1.15 Assessment and Plan Assessment Anesthesia Assessment: Chart Reviewed Documented by User: Bryce Fields MD 03/07/23 07:34 [facility] Past Medical History Medical History Dyslipidemia Impaired fasting glucose Post-COVID syndrome Intellectual disability Morbid obesity History of depression History of migraine Obstructive sleep apnea Acquired hypothyroidism Family History Family History Father Myocardial infarction CVD (cardiovascular disease) Mother No problems noted. Brother No problems noted. Brother No problems noted. Family history of problems with anesthesia: No Surgical History Surgical History Hx of laparoscopic gastric banding History of Problems with Anesthesia: No Social History Housing: Apartment Alcohol intake: former Patient Tobacco Use Status: Never used Tobacco e-Cigarette/Vaping Use: Never Used Have you been hit, kicked, punched, or otherwise hurt by someone within the past year? 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 Cognitive needs: No Hearing needs: No Vision needs: Yes Meds Allergies Allergy/AdvReac Type Severity Reaction Status Date / Time Penicillins Allergy Unknown hives Verified 02/24/23 09:11 Home Medications Medication Instructions Recorded Confirmed Last Taken Type multivitamin See Rx Instructions PO QAM 01/28/20 03/01/23 Unknown History vitamin D3 25 mcg (1,000 unit)-vit 1 tab PO DAILY 01/03/23 03/01/23 Unknown History K2 90 mcg disintegrating tablet Exam Airway Mallampati Class: III TM Dist: >3cm Neck ROM: Full Assessment and Plan Assessment Anesthesia Assessment: Anesthesia Plan Discussed Final Anesthetic Review Family History of Problems with Anesthesia: No History of Problems with Anesthesia: No NPO: Yes ASA Class: III Final Preanesthetic Review: No Changes in Pt Med Stat, Meds/Allgs Chart Reviewed, Consent Obtained/Reviewed and Anes Risks/Benef Reviewed Patient Risk: Intermediate Procedure Risk: Low Anesthetic Plan Anesthetic Plan: MAC: Disposition: Standard PACU
--- NOTE | 2023-03-07 06:27 | P.HPSUR_ITS ---
Pre-Procedural Eval Section A Date of Service: 03/07/23 Section B Chief Complaint: Encounter for screening for malignant neoplasm Relevant Family History (Specify if Yes): No Relevant Social History: None Present Medications: see Short Stay Collaborative assessment Medical History: Significant History (TREVON Morbid obesity Intellectual disability High cholesterol Hypothyroid Post COVID syndrome Right shoulder tendinitis Migraines Depression ) History of Previous Operations: Relevant previous surgery/procedure and date(s) (lap band) Allergies: Allergies Allergy/AdvReac Type Severity Reaction Status Date / Time Penicillins Allergy Unknown hives Verified 02/24/23 09:11 Review of Systems Sugical H&P ROS: Negative: Constitution, Cardiovascular, Respiratory, Neurological, Psychiatric, Hem-Onc, Allergic/Immunologic, Gastrointestinal, Genitourinary, Musculoskeletal, Integumentary, Endocrine and Eyes/Ears/Nose/Throat Exam Surgical H&P Exam: Normal: HEENT, Normal: Heart, Normal: Lungs, Normal: Extremi ties, Normal: Abdomen, Normal: Skin and Normal: Neurological Plan Diagnosis/Plan: Unchanged I have reviewed the history and physical and performed a pertinent physical examination on my patient. No changes have occurred unless specified. Time Spent With Patient Time: Total time managing care of this patient today ____ minutes.
[2023-03-07 07:05] VITALS: BP 161/90; PULSE 100; RESP 18; TEMP 37.4; O2SAT 95
[2023-03-07] MEDS: Lactated Ringers 1,000 ML 100 ML IVCONT (07:09)
--- NOTE | 2023-03-07 08:01 | W.PM.OPN ---
Operative Note Operative Note Date of Service: 03/07/23 Narrative: Operative Information Procedure Description: Colonoscopy Indication: screening Anesthesia: MAC COLONOSCOPY Instrument: Olympus variable stiffness pediatric scope 190L Colonoscopy Monitoring: Vital signs and clinical assessment, continuous EKG monitoring, Pulse oximetry, Carbon Dioxide monitoring and blood pressure monitoring were done throughout the procedure. Colon withdrawal time was 9 minutes. Procedure: The patient was placed in the left lateral decubitis position and pre-procedure medications were administered. After a digital rectal examination of the ano-rectum, the video colonoscope was inserted into the rectum and advanced through the colon to the cecum/TI. The colonoscope was slowly withdrawn in a retrograde panoramic fashion and the colon mucosa was carefully examined including a retroflexed view of the rectum. Findings and interventions are described below. Procedure Difficulty: moderate Findings: Terminal Ileum-not intubated Cecum:normal Ascending Colon: normal Transverse Colon -normal Descending Colon:normal Sigmoid Colon: scattered diverticula, mild Rectum: Retroflexion with small internal hemorrhoids, grade I Anorectum - normal Colon preparation: [place] Bowel Preparation Scale Right colon; 2 Transverse colon: 3 Left colon; 3 (0 = Unprepared colon segment with mucosa not seen due to solid stool that cannot be cleared. 1 = Portion of mucosa of the colon segment seen, but other areas of the colon segment not well seen due to staining, residual stool and/or opaque liquid. 2 = Minor amount of residual staining, small fragments of stool and/or opaque liquid, but mucosa of colon segment seen well. 3 = Entire mucosa of colon segment seen well with no residual staining, small fragments of stool or opaque liquid) Impression and Post Procedure Diagnosis: internal hemorrhoids diverticular disease Plan: High fiber diet leaflet Avoid straining at stool, epsom salts and sitz bath, anusol supps or cream Repeat Colonoscopy in 10 years or earlier if clinically indicated Above findings were reviewed with the patient and relevant handouts were provided if indicated.
[2023-03-07 08:07] VITALS: BP 129/88; PULSE 87; RESP 16; TEMP 36.8; O2SAT 95
[2023-03-07 08:22] VITALS: BP 141/95; PULSE 91; RESP 18; TEMP 36.9; O2SAT 98
== END 2023-03-07 09:07 | disposition home or self-care (01) ==
PROVIDERS: PCP Internal Medicine; Visit Provider Internal Medicine Gastroenterology
PROC: 0DJD8ZZ Inspection of Lower Intestinal Tract, Via Natural or Artificial Opening Endoscopic (ICD-10-PCS; CPT 45378; principal; 2023-03-07 07:30)
DX: Z12.11 Encounter for screening for malignant neoplasm of colon (principal); K57.30 Diverticulosis of large intestine without perforation or abscess without bleeding; K64.0 First degree hemorrhoids; G47.33 Obstructive sleep apnea (adult) (pediatric); E66.01 Morbid (severe) obesity due to excess calories; Z68.41 Body mass index [BMI] 40.0-44.9, adult; F79 Unspecified intellectual disabilities; U09.9 Post COVID-19 condition, unspecified; G43.909 Migraine, unspecified, not intractable, without status migrainosus; E78.00 Pure hypercholesterolemia, unspecified; R73.01 Impaired fasting glucose; E03.9 Hypothyroidism, unspecified; Z79.899 Other long term (current) drug therapy; Z99.89 Dependence on other enabling machines and devices; Z88.0 Allergy status to penicillin
CPT/HCPCS: G0121; J2704

== ENCOUNTER → 2023-03-07 06:26 | Outpatient (BNV) | payer OTHER, SELFPAY | PROVIDERS: PCP Internal Medicine; Visit Provider Internal Medicine Gastroenterology | DX: Z12.11 Encounter for screening for malignant neoplasm of colon (principal); K57.90 Diverticulosis of intestine, part unspecified, without perforation or abscess without bleeding; K64.8 Other hemorrhoids | CPT/HCPCS: G0121 ==

== ENCOUNTER 2023-03-21 08:08 | Outpatient (AMB) | payer OTHER, SELFPAY ==
--- NOTE | 2023-03-21 08:12 | MHC.OFFVIS ---
Intake Vital Signs 03/21/23 08:13 Height 5 ft 6 in Weight 268 lb 15.423 oz BMI 43.4 BP 136/85 Blood Pressure Location Lt brachial Position Sitting Pulse 85 Intake Visit Reasons: S/P [place]; Dr. Romero Intake Note: Chele presents in the office as a follow up colonoscopy. CC: He is not having any concerns just here to discuss results. Allergies Penicillins Allergy (Unknown, Verified 03/21/23 08:14) hives HPI S/P [place]; Dr. Romero HPI Details Assessment & Plan (1) Pre-op examination: Code(s): Z01.818 - Encounter for other preprocedural examination Plan: This is his first colonoscopy. HE denies any bowel problems, he can only limit limited portions r/t his surgeries, no other upper GI problems. The problems with anesthesia or sedation. He has TREVON no other respiratory problems, he denies any cardiac problems. NO ID problems. NO known FHX of colon cancer or polyps. (2) Intellectual disability: Code(s): F79 - Unspecified intellectual disabilities (3) Obstructive sleep apnea: Comment: A mild degree of sleep apnea. The AHI was 10/hr and oxygen trinity was 84%.started CPAP 07/2022, Code(s): G47.33 - Obstructive sleep apnea (adult) (pediatric) (4) Morbid obesity: Code(s): E66.01 - Morbid (severe) obesity due to excess calories Orders: Orders Comprehensive Met. Panel Today Z01.818 - Encounte r for other prepro cedural examinatio n Colonoscopy - GI U se Only Today Z01.818 - Encounte r for other prepro cedural examinatio n Complete Blood Cou nt Auto Diff Today Z01.818 - Encounte r for other prepro cedural examinatio n Medications: New peg 3350-electroly per 236-22.74-6.74 -5.86 gram (Golyt lorena) until feca l effluent is zeeshan r; do not exceed a total volume of 2 ,000 mL 240 mL PO Q10M 1 day 4,000 mL 0RF Z12.11 - Encounter for screening for malignant neoplas m of colon COLONOSCOPY 03/07/23 Findings: Terminal Ileum-not intubated Cecum:normal Ascending Colon: normal Transverse Colon -normal Descending Colon:normal Sigmoid Colon: scattered diverticula, mild Rectum: Retroflexion with small internal hemorrhoids, grade I Anorectum - normal Impression and Post Procedure Diagnosis: internal hemorrhoids diverticular disease Plan: High fiber diet leaflet Avoid straining at stool, epsom salts and sitz bath, anusol supps or cream Repeat Colonoscopy in 10 years or earlier if clinically indicated TODAY'S VISIT He is agreeable to a 10 year follow up. He really liked Dr. Romero and would like him again for his next colonoscopy. The procedure was well tolerated. The results were explained and the patient is agreeable to the follow-up interval as stated. The bowel pattern has returned to normal. Education was provided to tell any 1st degree relatives about their findings to be sure that they are screened by age 45. Educated that they will be put on a recall list when it is time for their repeat scope but should they move out of state or away from the hospital they will need to remember along with their primary to repeat the procedure in a timely fashion to avoid any adverse complications. [facility] Medical History Dyslipidemia Impaired fasting glucose Post-COVID syndrome Intellectual disability Morbid obesity History of depression History of migraine Obstructive sleep apnea Acquired hypothyroidism Surgical History (Updated 03/21/23 @ 08:22 by CHLOÉ Brizuela) Hx of colonoscopy Hx of laparoscopic gastric banding Family History Father Myocardial infarction CVD (cardiovascular disease) Mother No problems noted. Brother No problems noted. Brother No problems noted. 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 needs: No Hearing needs: No Vision needs: Yes Review of Systems Const Denies fatigue, Denies fever(s), Denies night sweats, Denies poor appetite and Denies weight loss Eyes Details: glasses Reports requires corrective lenses ENT Reports Normal hearing present, Denies dental pain, Denies dysphagia, Denies hearing loss, Denies mouth pain, Denies odynophagia, Denies throat swelling, Denies tongue swelling and Reports other (Dentition adequate) Card Reports no additional complaints Resp Reports no additional complaints GI Denies abdominal pain, Denies melena, Denies bloating, Denies hematochezia, Denies constipation, Denies GI cramping, Denies dysphagia, Denies excessive flatus, Denies early satiety, Denies heartburn, Denies diarrhea, Denies nausea, Denies odynophagia, Denies vomiting and Denies hematemesis Skin/Breast Denies pruritus, Denies lesions, Denies rash and Denies jaundice Neuro Reports Normal hearing present and Denies Abnormal speech present Endo Denies fatigue Aller/Immun Denies throat swelling and Denies tongue swelling Physical Exam Vital Signs: Last Vital Signs Pulse 85 03/21/23 08:13 BP 136/85 03/21/23 08:13 BMI result Body Mass Index 43.4 Const General: cooperative, no acute distress, well developed and well groomed Nutritional Appearance: well nourished and obese Orientation/consciousness: oriented to person, oriented to place and oriented to time Limitations: No language barrier HEENT Head: Yes normocephalic and Yes atraumatic Eyes General: appearance normal, both eyes and all related structures Pupils: Equal, round and reactive pupils present Neck Neck: Yes normal visual inspection and Yes no lymphadenopathy Thyroid: Thyroid normal Resp Effort & Inspection: normal respiratory effort and able to speak in complete sentences Auscultation: clear to auscultation bilaterally Cardio Rate: regular rate Rhythm: regular rhythm Heart sounds: Normal, physiologic split S2 sound present Peripheral pulses: radial pulses present and posterior tibial pulses present GI Inspection: No distended, Yes Abdominal panniculus present and Yes obesity Palpation (GI): Soft to palpation, nontender, no guarding, not rigid and No hepatosplenomegaly present Percussion: Yes normal to percussion Auscultation: normal bowel sounds Rectal Exam - Male: Yes deferred Skin General skin exam: no rashes or lesions noted, turgor normal, skin not dry, no jaundice, No spider nevi and no striae Rashes: no rashes Nails: normal Neuro General: oriented to person, oriented to place and oriented to time Cranial nerves: Yes Equal, round and reactive pupils present and Yes Normal hearing present Speech: No Abnormal speech present Extrem General: Yes normal to inspection, No clubbing, No cyanosis and No edema Psych Appearance: grossly normal and well kempt Mental Status: mental status grossly normal Speech and movement: Normal speech and movement present Affect: normal affect Attitude: cooperative Thought process: Normal thought process present and not confabulating Thought content: Normal thought content present Insight: Fair insight present (Psych) Judgement: Fair judgement present (Psych) Assessment & Plan Assessment & Plan (1) Hx of colonoscopy: Code(s): Z98.890 - Other specified postprocedural states Plan He is agreeable to a 10 year follow up. He really liked Dr. Romero and would like him again for his next colonoscopy. The procedure was well tolerated. The results were explained and the patient is agreeable to the follow-up interval as stated. The bowel pattern has returned to normal. Education was provided to tell any 1st degree relatives about their findings to be sure that they are screened by age 45. Educated that they will be put on a recall list when it is time for their repeat scope but should they move out of state or away from the hospital they will need to remember along with their primary to repeat the procedure in a timely fashion to avoid any adverse complications. Coding Level of Care Code Est Pt Level 3 (53445) Diagnoses Hx of colonoscopy Z98.890
[2023-03-21 08:13] VITALS: BP 136/85; PULSE 85; BMI 43.4
== END 2023-03-21 08:37 | disposition home or self-care (01) ==
PROVIDERS: PCP Internal Medicine; Visit Provider Nurse Practitioner
DX: Z98.890 Other specified postprocedural states (principal)
CPT/HCPCS: 99213

== ENCOUNTER → 2023-03-21 08:08 | Outpatient (BNVA) | payer OTHER, SELFPAY | PROVIDERS: PCP Internal Medicine; Visit Provider Nurse Practitioner | DX: Z98.890 Other specified postprocedural states (principal) | CPT/HCPCS: 99212 ==

== ENCOUNTER 2023-04-28 08:28 | Outpatient (AMB) | payer OTHER, SELFPAY ==
--- NOTE | 2023-04-28 08:42 | MHC.OFFWIV ---
Intake Vital Signs 04/28/23 08:43 Height 5 ft 6 in Weight 268 lb BMI 43.3 BP 130/82 Blood Pressure Location Rt brachial Position Sitting Pulse 87 Pulse Source Pulse Oximeter Temp 98.2 F Temp Source Oral Pulse Oximetry (%) 97 Intake Visit Reasons: EP, dry cough (masked-lobby) Intake Note: pt is here for c.o dry cough since 3 days starting on Monday denies any other symptoms Patient Tobacco Use Status: Never used Tobacco Allergies Penicillins Allergy (Unknown, Verified 04/28/23 08:44) hives Do you need a note to return to daycare/school/sports/work: Yes HPI HPI Comments History of Present Illness Details 47 y/o male patient who presents to walk in clinic with c/o dry cough. This is a chronic condition that happens on/off. H/o TREVON and wears CPAP mask at night. Denies fevers, chills, nausea or vomiting. PFSH Medical History Dyslipidemia Impaired fasting glucose Post-COVID syndrome Intellectual disability Morbid obesity History of depression History of migraine Obstructive sleep apnea Acquired hypothyroidism Surgical History (Updated 03/21/23 @ 08:22 by CHLOÉ Brizuela) Hx of colonoscopy Hx of laparoscopic gastric banding Family History Father Myocardial infarction CVD (cardiovascular disease) Mother No problems noted. Brother No problems noted. Brother No problems noted. 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 needs: No Hearing needs: No Vision needs: Yes Review of Systems Const All systems reviewed & are unremarkable except as noted in HPI and below Physical Exam Vital Signs: Last Vital Signs Temp 98.2 F 04/28/23 08:43 Pulse 87 04/28/23 08:43 BP 130/82 04/28/23 08:43 Pulse Ox 97 04/28/23 08:43 BMI result Body Mass Index 43.3 HEENT Head: Yes normocephalic Ears: external ears normal and TM's normal bilaterally General nose exam: Normal nares present Face and sinus: Yes sinuses nontender Mouth: Normal oral and palatal mucosa present and moist mucous membranes Throat: Yes posterior oropharynx normal Resp Effort & Inspection: normal respiratory effort Auscultation: clear to auscultation bilaterally Cardio Rate: regular rate Rhythm: regular rhythm Assessment & Plan Assessment & Plan (1) Cough in adult: Code(s): R05.9 - Cough, unspecified Plan: - Warm fluids - Rest - OTC cold remedies. Medications: New benzonatate 200 mg (2 x 100 mg) PO TID 90 caps 0RF R05.9 - Cough, unspecified Coding Level of Care Code Est Pt Level 3 (19238) Diagnoses Cough in adult R05.9 Time Spent (min) 15
[2023-04-28 08:43] VITALS: BP 130/82; PULSE 87; TEMP 36.8; O2SAT 97; BMI 43.3
== END 2023-04-28 09:17 | disposition home or self-care (01) ==
PROVIDERS: PCP Internal Medicine; Visit Provider Nurse Practitioner Family
DX: R05.9 Cough, unspecified (principal)
CPT/HCPCS: 99213

== ENCOUNTER 2024-03-01 13:37 | Outpatient (AMB) | payer OTHER, SELFPAY ==
[2024-03-01 13:40] VITALS: BP 138/78; BMI 44.9
--- NOTE | 2024-03-01 13:40 | A.OFFVIS_ITS ---
Vital Signs 03/01/24 13:40 Height 5 ft 6 in Weight 278 lb BMI 44.9 BP 138/78 Blood Pressure Location Rt brachial Position Sitting Intake Visit Reasons: 1 yr f/u for sleep Intake Note: Patient presents for TREVON Allergies Penicillins Allergy (Unknown, Verified 03/01/24 13:42) hives Medication List - Last Reconciled 03/01/24 by Leigh Hull PA-C benzonatate 200 mg (2 x 100 mg) PO TID levothyroxine 175 mcg PO DAILY multivitamin PO every morning; vitamin D3-vitamin K2 25 mcg (1,000 unit)-90 mcg 1 tab PO DAILY HPI Comments Details: 46 y/o male patient presents for follow up of TREVON on CPAP. The home sleep study result was significant for a mild degree of sleep apnea. The AHI was 10/hr and oxygen trinity was 84%. Pt started APAP [id number]. He is compliant CPAP. The average usage hours 7 hrs 34min. The residual AHI was 0.2 Pt is very happy about CPAP. He sleeps well with it and no snoring, refreshed in the morning and has more energy during daytime. He sees the chiropractor for spinal adjustments, for headaches rarely about 1x week. Frontotemporal, pounding, lasts one hour, he takes a hot shower and they go away. Noise sensitivity and sound sensitivity. Denies flashes, double vision. He uses Excederine OTC and Ibuprofen if the headaches don't stop. He walks daily BMI is 44.9, patient is concerned about his weight and would like to speak with PcP about Monjarou or Weeladiovy, next week. [facility] Medical History Dyslipidemia Impaired fasting glucose Post-COVID syndrome Intellectual disability Morbid obesity History of depression History of migraine Obstructive sleep apnea Acquired hypothyroidism Surgical History Hx of colonoscopy Hx of laparoscopic gastric banding Family History Father Myocardial infarction CVD (cardiovascular disease) Mother No problems noted. Brother No problems noted. Brother No problems noted. 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 needs: No Hearing needs: No Vision needs: Yes Review of Systems Const All systems reviewed & are unremarkable except as noted in HPI and below Physical Exam Vital Signs: Last Vital Signs BP 138/78 03/01/24 13:40 BMI result Body Mass Index 44.9 Const General: cooperative, comfortable and no acute distress Nutritional Appearance: obese Orientation/consciousness: patient oriented x3 Eyes Pupils: Equal, round and reactive pupils present Neck Neck: Yes full ROM and Yes supple Resp Effort & Inspection: normal respiratory effort and able to speak in complete sentences Neuro General: patient oriented x3 and tone normal Cranial nerves: Yes CN's II-XII intact bilaterally, Yes Facial sensation intact/muscles of mastication intact, Yes Equal, round and reactive pupils present, Yes Normal accommodation reflex present, Yes Normal facial strength present, Yes Midline tongue present, Yes Symmetric palate elevation present, Yes Ability to bilaterally rotate head present and Yes Ability to bilaterally elevate shoulders present Gait exam (Neuro): Normal gait present Motor exam (neuro): 5/5 motor strength present throughout and Normal motor muscle tone present throughout Deep tendon reflexes (DTR's): Right triceps reflex intensity grade: 2+, Left triceps reflex intensity grade: 2+, Rt Biceps (C5, C6): 2+, Left biceps reflex intensity grade: 2+, Right brachioradialis reflex intensity grade: 2+, Left brachioradialis reflex intensity grade: 2+, Right patellar reflex intensity grade: 2+ and Left patellar reflex intensity grade: 2+ Coordination: [id number]-plet test normal Psych Attitude: cooperative Thought process: Normal thought process present Thought content: Normal thought content present Insight: Good insight present (Psych) Judgement: Good judgement present (Psych) Results Reviewed Results Reviewed: CPAP compliance He is compliant CPAP use Average 90% The average usage hours 7 hrs 34min. The residual AHI was 0.2 Labs Mar 02 TSH 10.9 Assessment & Plan Assessment & Plan (1) Obstructive sleep apnea: Comment: A mild degree of sleep apnea. The AHI was 10/hr and oxygen trinity was 84%.started CPAP 07/2022, Code(s): G47.33 - Obstructive sleep apnea (adult) (pediatric) Category: Medical (2) Morbid obesity: Code(s): E66.01 - Morbid (severe) obesity due to excess calories Category: Medical Plan Stressed compliance as Patient continues to have good clinical effects with CPAP. His TSH is elevated, will defer to PCP, labs for Hypothyroidism, patient is having difficulty maintaining weight. Stressed daily walking for 30 min to elevate heart rate, monitor caloric intake and weight management. Orders: Orders Complete Blood Count no Diff Today E03.9 - Hypothyroidism, unspecified, E66.01 - Morbid (severe) obesity due to excess calories, E78.5 - Hyperlipidemia, unspecified Comprehensive Met. Panel Today E03.9 - Hypothyroidism, unspecified, E66.01 - Morbid (severe) obesity due to excess calories, E78.5 - Hyperlipidemia, unspecified TSH reflex Free T4 Today E03.9 - Hypothyroidism, unspecified, E66.01 - Morbid (severe) obesity due to excess calories, E78.5 - Hyperlipidemia, unspecified, F09 - Unspecified mental disorder due to known physiological condition Lipid Panel with Reflex Today E03.9 - Hypothyroidism, unspecified, E66.01 - Morbid (severe) obesity due to excess calories, E78.5 - Hyperlipidemia, unspecified Hemoglobin A1c Today E03.9 - Hypothyroidism, unspecified, E66.01 - Morbid (severe) obesity due to excess calories, E78.5 - Hyperlipidemia, unspecified Coding Level of Care Code Tele Est Pt Level 3 (34456) Diagnoses Obstructive sleep apnea G47.33 Morbid obesity E66.01
== END 2024-03-01 14:28 | disposition home or self-care (01) ==
PROVIDERS: Absent Provider Nurse Practitioner Family; PCP Internal Medicine; Visit Provider Physician Assistant Medical
DX: G47.33 Obstructive sleep apnea (adult) (pediatric) (principal); E66.01 Morbid (severe) obesity due to excess calories; Z68.41 Body mass index [BMI] 40.0-44.9, adult
CPT/HCPCS: 99213

== ENCOUNTER 2024-03-04 10:46 | Outpatient (REF) | payer OTHER, SELFPAY ==
[2024-03-04 13:32] LABS: Hematocrit 49.2 % (42.0-52.0); Hemoglobin 16.3 g/dl (14.0-18.0); Mean Corpuscular HGB Conc 33.1 g/dl (31.0-36.0); Mean Corpuscular Hemoglobin 28.6 pg (27.0-33.0); Mean Corpuscular Volume 86.5 fL (80.0-98.0); Mean Platelet Volume 8.4 fL (9.4-12.4); Platelet Count 312 X10*3/uL (160-400); Red Blood Count 5.69 X10*6/uL (4.60-5.80); Red Cell Distribution Width 13.5 % (11.0-16.0); White Blood Count 8.4 X10*3/uL (4.8-10.8)
[2024-03-04 13:45] LABS: Estimated Average Glucose 123 mg/dL; Hemoglobin A1C 169.3383 umol/L; Hemoglobin A1c % 5.9 % (<6.0); Total Hemoglobin (HGBA1C) 4188.1322 umol/L
[2024-03-04 14:04] LABS: Alanine Aminotransferase 32 U/L (0-40); Albumin Level 4.1 g/dL (3.5-5.0); Alkaline Phosphatase 34 U/L (39-117); Anion Gap 14 (12-20); Aspartate Amino Transferase 30 U/L (5-37); Bilirubin Total 0.5 mg/dL (0.0-1.0); Blood Urea Nitrogen 12 mg/dL (9-16); Calcium 9.2 mg/dL (8.4-10.2); Carbon Dioxide 26 mmol/L (22-29); Chloride 102 mmol/L (96-108); Cholesterol 191 mg/dL (<200); Estimated Glomerular Filt Rate > 60; Glucose Random 95 mg/dL (60-115); HDL Cholesterol 39 mg/dL (>40); LDL Cholesterol Calculated 127 mg/dL (<100); Potassium 3.8 mmol/L (3.3-5.1); Sodium 138 mmol/L (135-145); Total Protein 7.4 g/dL (6.5-8.0); Triglycerides 128 mg/dL (<150)
[2024-03-04 14:16] LABS: Reflex LDLD? No
[2024-03-04 14:19] LABS: TSH reflex Free T4 11.47 uIU/mL (0.32-4.0)
== END 2024-03-04 10:47 | disposition home or self-care (01) ==
LOC: HO.HMGCLDS 10:46
PROVIDERS: PCP Internal Medicine; Visit Provider Physician Assistant Medical
DX: E66.01 Morbid (severe) obesity due to excess calories (principal); F09 Unspecified mental disorder due to known physiological condition; E03.9 Hypothyroidism, unspecified; E78.5 Hyperlipidemia, unspecified; Z13.1 Encounter for screening for diabetes mellitus
CPT/HCPCS: 36415; 80053; 80061; 83036; 84439; 84443; 85027

== ENCOUNTER 2024-03-06 08:26 | Outpatient (AMB) | payer OTHER, SELFPAY ==
[2024-03-06 08:51] VITALS: BP 128/74; PULSE 81; O2SAT 96; BMI 44.7
--- NOTE | 2024-03-06 08:51 | MHC.PC.OV ---
Vital Signs 03/06/24 08:51 Height 5 ft 6 in Weight 277 lb BMI 44.7 BP 128/74 Blood Pressure Location Lt brachial Position Sitting Pulse 81 Pulse Source Pulse Oximeter Pulse Oximetry (%) 96 Oxygen Delivery Method Room Air Intake Visit Reasons: Annual PE Intake Note: Pt is here today for his PE Allergies Penicillins Allergy (Unknown, Verified 03/06/24 09:46) hives Medication List - Last Reconciled 03/06/24 by Chayito Diaz MD [centrum dual action multi + mental focus 1 gummy PO DAILY] levothyroxine 200 mcg PO DAILY multivitamin PO every morning; vitamin D3-vitamin K2 25 mcg (1,000 unit)-90 mcg 1 tab PO DAILY Tobacco use date assessed: 03/06/24 Dental Screening Dental Screen Date: 03/06/24 Did you have a dental visit in the last 12 months?: No Did you have a dental problem in the last 6 months where you did not have access to dental care?: No Was dental information given to patient?: Patient has dentist HPI Annual PE HPI Details 48-year-old male presenting for his physical exam.. He has a history of hemorrhoids and diverticulosis identified during a last year colonoscopy, no polyps seen, repeat due again in 2033. Current blood work shows normal complete blood count with no anemia or infection. He currently takes levothyroxine at a dose of 175 mcg daily in the morning before meals. Despite adherence to medication, he reports increased fatigue, leading to consideration of a dosage increase. Latest fasting lab results showed thyroid-stimulating hormone level is slightly elevated with low / normal free T4, elevated LDL of 127 mg/dL, which, although reduced from previous results, remains above the optimal goal of less than 100 mg/dL. His HDL cholesterol level has also decreased, attributed to decreased physical activity. He is up-to-date with his yearly eye exam, is current with tetanus vaccination, offered and agreed to receive influenza vaccine during this visit. [facility] Medical History Dyslipidemia Impaired fasting glucose Post-COVID syndrome Intellectual disability Morbid obesity History of depression History of migraine Obstructive sleep apnea Acquired hypothyroidism Surgical History Hx of colonoscopy Hx of laparoscopic gastric banding Family History Father Myocardial infarction CVD (cardiovascular disease) Mother No problems noted. Brother No problems noted. Brother No problems noted. 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 1. Little interest or pleasure in doing things: not at all 2. Feeling down, depressed, or hopeless: not at all 3. Trouble falling or staying asleep, or sleeping too much: not at all 4. Feeling tired or having little energy: not at all 5. Poor appetite or overeating: not at all 6. Feeling bad about yourself - or that you are a failure or have let yourself or your family down: not at all 7. Trouble concentrating on things, such as reading the newspaper or watching television: not at all 8. Moving or speaking so slowly that other people could have noticed. Or the opposite - being so fidgety or restless that you have been moving around a lot more than usual: not at all 9. Thoughts that you would be better off or of hurting yourself in some way: not at all Total score: 0 Depression Screening Interpretation: Negative Depression Screening Done: Yes 02030 - PHQ-9 Billing: Yes Source: Developed by Drs. Tylor Strickland, Yamileth Last, Ean Gilmore and colleagues, with an educational lauri from [employer]. Thrive Questionnaire Date Thrive assessed: 06/16/22 I am a: Patient What is your living situation today?: I have a steady place to live Within the past 12 months, did the food you bought not last and you didn't have the money to get more?: Never true Within the past 12 months, did you worry whether your food would run out before you got money to buy more?: Never true Do you have trouble paying for medicines?: No Do you have trouble getting transportation to medical appointments?: I choose not to answer this question Do you have trouble paying your heating and electricity bill?: No Do you have trouble taking care of your child, family member or friend?: I choose not to answer this question Do you have trouble with day-to-day activities such as bathing, preparing meals, shopping, managing finances, etc.?: No Are you currently unemployed and looking for a job?: No Are you interested in more education?: No Please select the resources that you would like help with: None Currently or been in a relationship where the following occur: I choose not to answer THRIVE Score: 0 AUDIT C Alcohol Use Questionnaire (AUDIT-C) 1. How often do you have a drink containing alcohol?: Never Total Score: 0 ALEJANDRA-7 AMB Questionnaire ALEJANDRA-7 Date ALEJANDRA - 7 assessed: 06/16/22 Feeling nervous, anxious, or on edge: 0 = Not at all Not being able to stop or control worryin = Not at all Worrying too much about different things: 0 = Not at all Trouble relaxin = Not at all Being so restless that it is hard to sit still: 0 = Not at all Becoming easily annoyed or irritable: 0 = Not at all Feeling afraid as if something awful might happen: 0 = Not at all Total ALEJANDRA-7 score (0-4 normal; 5-9 mild; 10-14 moderate; 15-21 severe): 0 Source: Developed by Drs. Tylor Strickland, Yamileth Last, Ean Gilmore and colleagues, with an educational lauri from [employer]. ALEJANDRA-7 Assessment Billing ALEJANDRA-7 Assessment Tool: ALEJANDRA-7 Assessment 67720 Review of Systems Const Denies fever(s), Denies night sweats, Denies poor appetite and Denies weight loss Eyes Details: goes to [facility] Reports requires corrective lenses ENT Reports Normal hearing present, Denies dental pain, Denies dysphagia, Denies hearing loss, Denies mouth pain, Denies odynophagia, Denies throat swelling and Denies tongue swelling Card Reports no additional complaints Resp Reports no additional complaints GI Denies abdominal pain, Denies melena, Denies bloating, Denies hematochezia, Denies constipation, Denies GI cramping, Denies dysphagia, Denies excessive flatus, Denies early satiety, Denies heartburn, Denies diarrhea, Denies nausea, Denies odynophagia, Denies vomiting and Denies hematemesis Reports no additional complaints Musc Reports no additional complaints Skin/Breast Denies pruritus, Denies lesions, Denies rash and Denies jaundice Neuro Reports Normal hearing present and Denies Abnormal speech present Psych Reports no additional complaints Endo Reports no additional complaints John/Lymph Denies easy bleeding and Denies easy bruising Aller/Immun Denies throat swelling and Denies tongue swelling Physical exam (Primary Care) Vital Signs: Last Vital Signs Pulse 81 03/06/24 08:51 BP 128/74 03/06/24 08:51 Pulse Ox 96 03/06/24 08:51 Oxygen Delivery Method Room Air 03/06/24 08:51 BMI result Body Mass Index 44.7 BMI Assessment/Plan discussion: High BMI High, discussed plan: lifestyle, weight reduction, dietary and physical activity Tobacco/Smoking Status: Tobacco use Status Tobacco use date assessed 03/06/24 03/06/24 08:52 Patient Tobacco Use Status Never used Tobacco 03/06/24 08:52 e-Cigarette/Vaping Use Never Used 03/06/24 08:52 PHQ-9: PHQ-9 Score PHQ-9: Total score 0 03/06/24 10:08 Depression Screening Interpretation: Negative Thrive Assessment: Date of Thrive Assessment Date Thrive assessed 06/16/22 03/06/24 08:52 Currently or been in a relationship where the following occur: I choose not to answer Advance Care Planning discussion: Completed/Scanned Date of discussion: 03/06/24 Who was present: Patient Forms completed: Health Care Proxy Time spent: 16-45 minutes Actual minutes spent: 3 Const General: no acute distress Nutritional Appearance: obese morbidly obese Orientation/consciousness: patient oriented x3 HENMT Ears: hearing grossly normal bilaterally and external ears normal General nose exam: Normal external nose present Mouth: oropharynx normal and moist mucous membranes Throat: Yes posterior oropharynx normal Eyes General: appearance normal, both eyes and all related structures Conjunctivae: conjunctivae normal Pupils: Equal, round and reactive pupils present EOM: EOMs intact bilaterally Neck Other: Thyroid non Palpable and nontender Neck: Yes full ROM, Yes no lymphadenopathy and Yes supple Chest Chest palpation & inspection: normal inspection of the chest Resp Effort & Inspection: normal respiratory effort and able to speak in complete sentences Auscultation: clear to auscultation bilaterally Cardio Rate: regular rate Rhythm: regular rhythm Heart sounds: S1 normal heart sound present and S2 normal heart sound present GI Inspection: Yes Abdominal panniculus present and Yes obesity Palpation (GI): Soft to palpation, nontender and no masses Auscultation: normal bowel sounds General: Yes no CVA tenderness Male General Exam: Yes normal external exam Back/Spine/Pelvis Back: no CVA tenderness and No back tenderness Skin General skin exam: no rashes or lesions noted Neuro General: patient oriented x3, gait normal, tone normal, moves all extremities, Normal light touch and pain sensation and no focal motor deficits Cranial nerves: Yes Equal, round and reactive pupils present and Yes Normal hearing present Cognition (Neuro): normal cognition Speech: No Abnormal speech present Gait exam (Neuro): Normal gait present Motor exam (neuro): 5/5 motor strength present throughout Extrem General: Yes full ROM, Yes no joint enlargement, Yes no pedal edema and Yes normal gait Psych Appearance: grossly normal and well kempt Mental Status: mental status grossly normal Speech and movement: Normal speech and movement present Affect: normal affect Attitude: cooperative Thought process: Normal thought process present Thought content: Normal thought content present Office Procedures Flu Questionnaire Does the patient have a severe egg allergy?: No Does the patient have severe life threatening allergies?: No Does the patient have a fever or illness today?: No Has the patient ever had Guillain-[place] Syndrome?: No Has the patient ever had any past reaction to a flu shot?: No Immunizations Fluarix Triv 4189-8239 (PF) 45 mcg (15 mcg x 3)/0.5 mL IM syringe Performing Provider: Chayito Diaz MD Performing Location: [facility] Administered by: Dilia Kimball CMA on 03/06/24 10:13 Dose Route Admin Location Dispensed Lot Number Expiration Date [facility] Foreign Exchange Dealer 0.5 mL IM Left Deltoid 0.5 mL [id number] 10/07/24 [id number] [employer] VIS Given Date VIS Provided VIS Publication Date 03/06/24 Single Vaccine 20 Eligibility Eligibility Date Funding Source Not [facility] Eligible 03/06/24 Private Results Reviewed Results Reviewed: Name: Pebley,Chele R Age/Sex: 48/M : 1975 Unit#: [id number] Attend Dr: Leigh Hull PA-C Re03/04/24 Status: DEP [facility] Disch: SPEC : [id number] JD: 03/04/24 STATUS: COMP REQ : [id number] RECD: 03/04/[address]: Leigh Hull PA-C COMP: 03/04/24 ENTERED: 03/04/[address]: Chayito Diaz MD ORDERED: CBC No Diff Test Result Flag Reference WBC 8.4 4.8-10.8 X10*3/uL RBC 5.69 4.60-5.80 X10*6/uL HGB 16.3 14.0-18.0 g/dl HCT 49.2 42.0-52.0 % MCV 86.5 80.0-98.0 fL MCH 28.6 27.0-33.0 pg MCHC 33.1 31.0-36.0 g/dl RDW 13.5 11.0-16.0 % PLT 312 160-400 X10*3/uL MPV 8.4 L 9.4-12.4 fL NRBC Pct Auto 0.0 0.0-0.2 /100WBC NRBC Abs Auto 0.000 0.0-0.012 X10*3/uL Name: Chele Knight Age/Sex: 48/M : 1975 Unit#: [id number] Attend Dr: Leigh Hull PA-C Re03/04/24 Status: DEP REF Location: [facility] Disch: SPEC : [id number] JD: 03/04/24 STATUS: COMP REQ : [id number] RECD: 03/04/[address]: Leigh Hull PA-C COMP: 03/04/24 ENTERED: 03/04/[address]: Chayito Diaz MD ORDERED: CMP, Lipid with Rfx, Free T4, TSH Rflx Test Result Flag Reference Sodium 138 135-145 mmol/L Potassium 3.8 3.3-5.1 mmol/L CL 102 96-108 mmol/L CO2 26 22-29 mmol/L Gap 14 12-20 BUN 12 9-16 mg/dL Creat 1.20 0.5-1.4 mg/dL eGFR > 60 Chronic Kidney Disease: Estimated GFR < 60 mL/min/1.73m2 Severe Kidney Disease: Estimated GFR < 15 mL/min/1.73m2 Glucose, Random 95 60-115 mg/dL CA 9.2 8.4-10.2 mg/dL Total Bili 0.5 0.0-1.0 mg/dL AST (GOT) 30 5-37 U/L ALT (GPT) 32 0-40 U/L Protein, Total 7.4 6.5-8.0 g/dL Alb 4.1 3.5-5.0 g/dL Triglyceride 128 <150 mg/dL Desirable Triglyceride: less than 150 mg/dL Borderline High Triglyceride 150-199 mg/dL High Triglyceride: 200-499 mg/dL Very High Triglyceride: greater than or equal to 5OO mg/dL Cholesterol 191 <200 mg/dL Desirable Cholesterol: less than 200 mg/dL Borderline High Cholesterol: 200-239 mg/dL High Cholesterol: greater than 239 mg/dL LDL Calculated 127 H <100 mg/dL Desirable LDL: less than 100 mg/dL Near Optimal/Above Optimal LDL: 110-129 mg/dL Borderline High LDL: 130-159 mg/dL High LDL: 160-189 mg/dL Very High LDL: greater than or equal to 190 mg/dL HDL 39 L >40 mg/dL Desirable HDL: greater than 40 mg/dL Note: This HDL assay may give artificially low results in patients with liver disease. Alk Phos 34 L 39-117 U/L Free T4 0.80 0.71-1.85 ng/dL TSH 11.47 H 0.32-4.0 uIU/mL Coding Level of Care Code Est Pt Prev Care 40-64y(96032) Diagnoses Annual visit for general adult medical examination with abnormal findings Z00.01 Acquired hypothyroidism E03.9 Dyslipidemia E78.5 Impaired fasting glucose R73.01 Morbid obesity E66.01 Advanced directives, counseling/discussion Z71.89 Additional Codes ALEJANDRA-7 Assessment Billing - ALEJANDRA-7 Assessment Tool: ALEJANDRA-7 Assessment 72289 ([id number]) PHQ-9 - 00139 - PHQ-9 Billing: Yes ([id number]) Vital Signs *Quality* - Advance Care Planning discussion: Completed/Scanned ([id number]) Vital Signs *Quality* - Time spent: 16-45 minutes ([id number]) Assessment & Plan Assessment & Plan (1) Annual visit for general adult medical examination with abnormal findings: Code(s): Z00.01 - Encounter for general adult medical examination with abnormal findings (2) Acquired hypothyroidism: Code(s): E03.9 - Hypothyroidism, unspecified Category: Medical (3) Dyslipidemia: Code(s): E78.5 - Hyperlipidemia, unspecified Category: Medical (4) Impaired fasting glucose: Code(s): R73.01 - Impaired fasting glucose Category: Medical (5) Morbid obesity: Code(s): E66.01 - Morbid (severe) obesity due to excess calories Category: Medical (6) Advanced directives, counseling/discussion: Code(s): Z71.89 - Other specified counseling Plan: Initiated the conversation about Advanced Directives. Advanced Directives help patients prepare for current and future decisions about their medical treatment and place of care. Discussed with patient that it is a process where a patients current condition and prognosis are reviewed, their wishes for information regarding their illness are elicited, and likely medical dilemmas are presented and options discussed. Healthcare proxy form completed today. The form can be amended as needed, reviewed yearly and make changes as needed Plan I discussed with the patient increasing his levothyroxine dose due to his increased fatigue and slightly elevated TSH levels. We talked about the benefits of the adjustment to optimize his thyroid function and the importance of regular monitoring. I explained the necessity to continue engaging in regular physical activity and dietary management to improve lipid levels. The patient was informed about the influenza vaccine benefits, including reduced risk of seasonal flu, and he agreed to receive the shot today. - Increase levothyroxine dose from 175 mcg to 200 mcg daily and recheck thyroid function in three months. - Continue monitoring cholesterol; reinforce the importance of physical activity and dietary changes to improve HDL levels. - Prescription for increased thyroid medication sent to the pharmacy. - Administer influenza vaccine. - Continue monitoring hemorrhoids and diverticulosis; remain asymptomatic. - Schedule follow-up for repeat thyroid test in three months, with blood work to be completed beforehand. Patient was informed and verbally consented to the use of an ambient scribe for clinic note documentation during this visit. Orders: Orders Thyroid Stimulating Hormone 05/11/24 E03.9 - Hypothyroidism, unspecified Thyroid Peroxidase Antibodies 05/11/24 E03.9 - Hypothyroidism, unspecified Free T4 (Free Thyroxine) 05/11/24 E03.9 - Hypothyroidism, unspecified Influenza [id number] Immunization 03/06/24 Z23 - Encounter for immunization Medications: New levothyroxine 200 mcg PO DAILY 90 caps 1RF Discontinued levothyroxine Discontinued Reason: Doctor's Order 175 mcg PO DAILY 90 tabs 3RF E03.9 - Hypothyroidism, unspecified
== END 2024-03-06 10:11 | disposition home or self-care (01) ==
PROVIDERS: PCP Internal Medicine; Visit Provider Internal Medicine
DX: Z00.00 Encounter for general adult medical examination without abnormal findings (principal); E03.9 Hypothyroidism, unspecified; E66.01 Morbid (severe) obesity due to excess calories; Z68.41 Body mass index [BMI] 40.0-44.9, adult; E78.5 Hyperlipidemia, unspecified; R73.01 Impaired fasting glucose; Z71.89 Other specified counseling

== ENCOUNTER → 2024-03-06 08:26 | Outpatient (BNVA) | payer OTHER, SELFPAY | PROVIDERS: PCP Internal Medicine; Visit Provider Internal Medicine | DX: Z00.01 Encounter for general adult medical examination with abnormal findings (principal); Z23 Encounter for immunization; E03.9 Hypothyroidism, unspecified; E78.5 Hyperlipidemia, unspecified; R73.01 Impaired fasting glucose; E66.01 Morbid (severe) obesity due to excess calories; Z68.41 Body mass index [BMI] 40.0-44.9, adult; Z71.89 Other specified counseling | CPT/HCPCS: 90471; 90656; 96127; 99396 ==

== ENCOUNTER 2024-05-03 11:39 | Outpatient (AMB) | payer OTHER, SELFPAY ==
--- NOTE | 2024-05-03 11:35 | A.OFFPC_ITS ---
Intake Visit Reasons: Discuss weight loss, Sofia [phone] Allergies Penicillins Allergy (Unknown, Verified 05/03/24 12:04) hives Medication List - Last Reconciled 05/03/24 by Chayito Diaz MD [centrum dual action multi + mental focus 1 gummy PO DAILY] levothyroxine 224 mcg (2 x 112 mcg) PO DAILY 1 month vitamin D3-vitamin K2 25 mcg (1,000 unit)-90 mcg 1 tab PO DAILY Tobacco use date assessed: 05/03/24 Dental Screening Dental Screen Date: 05/03/24 Did you have a dental visit in the last 12 months?: No Did you have a dental problem in the last 6 months where you did not have access to dental care?: No Was dental information given to patient?: Patient has dentist HPI Discuss weight loss, Sofia [phone] HPI Details 48-year-old male with hypothyroidism, st able and controlled on levothyroxine, with obesity, dyslipidemia and impaired fasting glucose, here today wanting to discuss starting medications to help with weight loss. He has not really been following any particular diet nor has he been doing any regular exercise. He tends to eat more at night, and frequently has bedtime snacks. He does say that his work is physically demanding, works in a [employer] [facility] Medical History Dyslipidemia Impaired fasting glucose Post-COVID syndrome Intellectual disability Morbid obesity History of depression History of migraine Obstructive sleep apnea Acquired hypothyroidism Surgical History Hx of colonoscopy Hx of laparoscopic gastric banding Family History Father Myocardial infarction CVD (cardiovascular disease) Mother No problems noted. Brother No problems noted. Brother No problems noted. 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 Tylor Strickland, Yamileth Last, Ean Gilmore and colleagues, with an educational lauri from [employer]. Review of Systems Const Denies fever(s), Denies night sweats, Denies poor appetite and Denies weight loss Eyes Details: goes to [facility] Reports requires corrective lenses ENT Reports no additional complaints Card Reports no additional complaints Resp Reports no additional complaints GI Denies abdominal pain, Denies melena, Denies bloating, Denies hematochezia, Denies constipation, Denies GI cramping, Denies excessive flatus, Denies early satiety, Denies heartburn, Denies diarrhea, Denies nausea, Denies vomiting and Denies hematemesis Reports no additional complaints Musc Reports no additional complaints Skin/Breast Denies pruritus, Denies lesions, Denies rash and Denies jaundice Neuro Denies Abnormal speech present Psych Reports no additional complaints Endo Reports no additional complaints John/Lymph Denies easy bleeding and Denies easy bruising Physical exam (Primary Care) Tobacco/Smoking Status: Tobacco use Status Tobacco use date assessed 05/03/24 05/03/24 11:38 Patient Tobacco Use Status Never used Tobacco 05/03/24 11:38 e-Cigarette/Vaping Use Never Used 05/03/24 11:38 Thrive Assessment: Date of Thrive Assessment Date Thrive assessed 04/17/24 05/03/24 11:38 Neuro Speech: No Abnormal speech present Telehealth Telehealth Telehealth Platform: [facility] Location of provider rendering services: practice address Location of patient: address on file Patient Identification confirmed using: Name, : Yes Telehealth method: video Patient verbally consented to treatment: Yes Patient verbally consented to billing insurance company: Yes Patient informed of any privacy concerns related to visit: Yes Minutes spent on Phone/Video with Pt.: 15 Coding Level of Care Code Tele Est Pt Level 4 (59083) Diagnoses Morbid obesity E66.01 Acquired hypothyroidism E03.9 Assessment & Plan Assessment & Plan (1) Morbid obesity: Code(s): E66.01 - Morbid (severe) obesity due to excess calories Category: Medical Plan: For addressing the weight management issue, phentermine is recommended to aid appetite suppression. The patient should take the medication two hours post- breakfast, while adhering to a disciplined diet and exercise regimen. This combination is intended to optimize weight loss. The initial low dosing of phentermine aims to ensure patient tolerance, with possible dose escalation after a 30-day assessment. Potential side effects include palpitations and increased heart rates with a need for blood pressure monitoring. The patient is advised to reduce or eliminate sugary drinks and prioritize cardiovascular exercises. (2) Acquired hypothyroidism: Code(s): E03.9 - Hypothyroidism, unspecified Category: Medical Plan: Repeat another TSH and free T4 as well thyroid peroxidase antibodies in May prior to scheduled follow-up visit. Continued on current dose of levothyroxine 2224 mcg daily Plan Patient was informed and verbally consented to the use of an ambient scribe for clinic note documentation during this visit. Medications: New phentermine must administer 2 hours after breakfast 15 mg PO DAILY 30 caps 0RF
--- OUTSIDE RECORDS SUMMARY | 2024-05-03 13:51 | XMS_ITS | Clinical Summary ---
Author Organization [facility] Address [address] [place] [address] Care Team Providers Care Retail Team Leader Name Role Phone Unavailable Primary Care Provider Unavailabl e Source Comments PLEASE NOTE, if this patient is a minor, it may be UNLAWFUL to discuss sensitive information that is contained in these records (such as FAMILY PLANNING, MENTAL HEALTH or SUBSTANCE ABUSE) with the minor patient's parent or other person without the patient's specific authorization.[facility] Social History Tobacco Use Types Packs/Day Years Used Date Smoking Tobacco: Never Assessed Social Connections Answer Date Recorded Social Connections and Isolation 0 12/01/2018 Financial Resource Strain Answer Date R ecorded Financial Resource Strain 0 2018 Stress Answer Date Recorded Stress 0 12/01/2018 Physical Activity Answer Date Recorded Physical Activity 0 12/01/2018 Food Insecurity Answer Date Recorded Food 0 12/01/2018 Transportation Needs Answer Date Record ed Transportation 0 12/01/2018 Housing Stability Answer Date Recorded Housing 0 12/01/2018 Safety and Environment Answer Date Hima rded Safety 0 12/01/2018 Utilities Answer Date Recorded Utilities 0 12/01/2018 Employment Answer Date Recorded Employment 0 12/01/2018 Sex and Gender Information Value Date Recorded Sex Assigned at Not on file Legal Sex Male 8:49 AM PDT Gender Identity Not on file Sexual Orientation Not on file Plan of Treatment Not on file Insurance [place] [facility] DENTAL GENERIC - DENTAL
== END 2024-05-03 13:02 | disposition home or self-care (01) ==
LOC: HO.HMCC 11:39
PROVIDERS: PCP Internal Medicine; Visit Provider Internal Medicine
DX: E03.9 Hypothyroidism, unspecified (principal); E66.01 Morbid (severe) obesity due to excess calories

== ENCOUNTER 2024-06-04 10:48 | Outpatient (AMB) | payer OTHER, SELFPAY ==
--- NOTE | 2024-06-04 11:27 | MHC.PC.OV ---
Vital Signs 06/04/24 11:35 Height 5 ft 6 in Weight 277 lb BMI 44.7 BP 112/84 Blood Pressure Location Rt brachial Position Sitting Respiration 16 Pulse 97 Pulse Source Pulse Oximeter Temp 98.1 F Temp Source Oral Pulse Oximetry (%) 97 Oxygen Delivery Method Room Air Intake Visit Reasons: Follow-up weight on phentermine Intake Note: Pt is here today for his 4wk f/u wgt Allergies Penicillins Allergy (Unknown, Verified 06/04/24 11:52) hives Medication List - Last Reconciled 06/04/24 by Chayito Diaz MD [centrum dual action multi + mental focus 1 gummy PO DAILY] levothyroxine 224 mcg (2 x 112 mcg) PO DAILY 1 month phentermine 15 mg PO DAILY vitamin D3-vitamin K2 25 mcg (1,000 unit)-90 mcg 1 tab PO DAILY Tobacco use date assessed: 06/04/24 Dental Screening Dental Screen Date: 06/04/24 Did you have a dental visit in the last 12 months?: Yes Did you have a dental problem in the last 6 months where you did not have access to dental care?: No Was dental information given to patient?: Patient has dentist HPI HPI Comments History of Present Illness Details 48-year-old male with history of impaired fasting glucose, dyslipidemia, hypothyroidism currently on levothyroxine, has morbid obesity, here today for follow-up. He has been taking phentermine 15 mg 1 capsule once a day, and has been following recommended diet and started exercising regularly. He states that he has bee helping cut his food cravings, but still has not been able to lose any significant amount of weight since starting it a month ago he does admit to not getting much exercise lately due to the weather. Denies any adverse effects from taking the medication. Patient states that he is feeling well on current dose of levothyroxine. Has not yet had his repeat thyroid levels checked again [facility] Medical History Dyslipidemia Impaired fasting glucose Post-COVID syndrome Intellectual disability Morbid obesity History of depression History of migraine Obstructive sleep apnea Acquired hypothyroidism Surgical History Hx of colonoscopy Hx of laparoscopic gastric banding Family History Father Myocardial infarction CVD (cardiovascular disease) Mother No problems noted. Brother No problems noted. Brother No problems noted. 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 1. Little interest or pleasure in doing things: not at all 2. Feeling down, depressed, or hopeless: not at all 3. Trouble falling or staying asleep, or sleeping too much: not at all 4. Feeling tired or having little energy: not at all 5. Poor appetite or overeating: not at all 6. Feeling bad about yourself - or that you are a failure or have let yourself or your family down: not at all 7. Trouble concentrating on things, such as reading the newspaper or watching television: not at all 8. Moving or speaking so slowly that other people could have noticed. Or the opposite - being so fidgety or restless that you have been moving around a lot more than usual: not at all 9. Thoughts that you would be better off or of hurting yourself in some way: not at all Total score: 0 Depression Screening Interpretation: Negative Depression Screening Done: Yes 38878 - PHQ-9 Billing: Yes Source: Developed by Drs. Tylor Strickland, Yamileth Last, Ean Gilmore and colleagues, with an educational lauri from [employer]. Thrive Questionnaire Date Thrive assessed: 04/17/24 I am a: Patient What is your living situation today?: I choose not to answer this question Within the past 12 months, did the food you bought not last and you didn't have the money to get more?: I choose not to answer this question Within the past 12 months, did you worry whether your food would run out before you got money to buy more?: I choose not to answer this question Do you have trouble paying for medicines?: No Do you have trouble getting transportation to medical appointments?: No Do you have trouble paying your heating and electricity bill?: No Do you have trouble taking care of your child, family member or friend?: I choose not to answer this question Do you have trouble with day-to-day activities such as bathing, preparing meals, shopping, managing finances, etc.?: No Are you currently unemployed and looking for a job?: No Are you interested in more education?: No Please select the resources that you would like help with: None Currently or been in a relationship where the following occur: I choose not to answer THRIVE Score: 0 AUDIT C Alcohol Use Questionnaire (AUDIT-C) 1. How often do you have a drink containing alcohol?: Never Total Score: 0 ALEJANDRA-7 AMB Questionnaire ALEJANDRA-7 Date ALEJANDRA - 7 assessed: 06/04/24 Feeling nervous, anxious, or on edge: 0 = Not at all Not being able to stop or control worryin = Not at all Worrying too much about different things: 0 = Not at all Trouble relaxin = Not at all Being so restless that it is hard to sit still: 0 = Not at all Becoming easily annoyed or irritable: 0 = Not at all Feeling afraid as if something awful might happen: 0 = Not at all Total ALEJANDRA-7 score (0-4 normal; 5-9 mild; 10-14 moderate; 15-21 severe): 0 Source: Developed by Drs. Tylor Strickland, Yamileth Last, Ean Gilmore and colleagues, with an educational lauri from [employer]. ALEJANDRA-7 Assessment Billing ALEJANDRA-7 Assessment Tool: ALEJANDRA-7 Assessment 93445 Review of Systems Const Denies night sweats Eyes Details: goes to [facility] Reports requires corrective lenses ENT Reports no additional complaints and Reports Normal hearing present Card Reports no additional complaints Resp Reports no additional complaints GI Denies abdominal pain, Denies hematochezia, Denies constipation, Denies heartburn, Denies diarrhea and Denies nausea Reports no additional complaints Musc Reports no additional complaints Skin/Breast Denies pruritus, Denies lesions, Denies rash and Denies jaundice Neuro Reports Normal hearing present and Denies Abnormal speech present Psych Reports no additional complaints Endo Reports no additional complaints John/Lymph Denies easy bleeding and Denies easy bruising Physical exam (Primary Care) Vital Signs: Last Vital Signs Temp 98.1 F 06/04/24 11:35 Pulse 97 06/04/24 11:35 Resp 16 06/04/24 11:35 BP 112/84 06/04/24 11:35 Pulse Ox 97 06/04/24 11:35 Oxygen Delivery Method Room Air 06/04/24 11:35 BMI result Body Mass Index 44.7 Tobacco/Smoking Status: Tobacco use Status Tobacco use date assessed 06/04/24 06/04/24 11:30 Patient Tobacco Use Status Never used Tobacco 06/04/24 11:30 e-Cigarette/Vaping Use Never Used 06/04/24 11:30 PHQ-9: PHQ-9 Score PHQ-9: Total score 0 06/04/24 11:39 Depression Screening Interpretation: Negative Thrive Assessment: Date of Thrive Assessment Date Thrive assessed 04/17/24 06/04/24 11:30 Currently or been in a relationship where the following occur: I choose not to answer Const General: no acute distress Nutritional Appearance: obese morbidly obese Orientation/consciousness: patient oriented x3 [facility] General nose exam: Normal external nose present Mouth: oropharynx normal and moist mucous membranes Eyes General: appearance normal, both eyes and all related structures Neck Other: Thyroid non Palpable and nontender Neck: Yes full ROM, Yes no lymphadenopathy and Yes supple Resp Effort & Inspection: normal respiratory effort and able to speak in complete sentences Auscultation: clear to auscultation bilaterally Cardio Rate: regular rate Rhythm: regular rhythm Heart sounds: S1 normal heart sound present and S2 normal heart sound present GI Inspection: Yes Abdominal panniculus present and Yes obesity Palpation (GI): Soft to palpation, nontender and no masses Auscultation: normal bowel sounds Back/Spine/Pelvis Back: No back tenderness Neuro General: patient oriented x3, gait normal, tone normal, moves all extremities, Normal light touch and pain sensation and no focal motor deficits Cranial nerves: Yes Normal hearing present Cognition (Neuro): normal cognition Speech: No Abnormal speech present Gait exam (Neuro): Normal gait present Motor exam (neuro): 5/5 motor strength present throughout Extrem General: Yes full ROM, Yes no joint enlargement, Yes no pedal edema and Yes normal gait Psych Appearance: grossly normal and well kempt Mental Status: mental status grossly normal Speech and movement: Normal speech and movement present Affect: normal affect Attitude: cooperative Thought process: Normal thought process present Thought content: Normal thought content present Coding Level of Care Code Est Pt Level 4 (02103) Diagnoses Morbid obesity E66.01 Acquired hypothyroidism E03.9 Obstructive sleep apnea G47.33 Additional Codes ALEJANDRA-7 Assessment Billing - ALEJANDRA-7 Assessment Tool: ALEJANDRA-7 Assessment 24849 ([id number]) PHQ-9 - 13742 - PHQ-9 Billing: Yes ([id number]) Assessment & Plan Assessment & Plan (1) Morbid obesity: Code(s): E66.01 - Morbid (severe) obesity due to excess calories Category: Medical Plan: Will continue on phentermine 15 mg per capsule to take once a day 2 hours after breakfast, combined this with adherence to healthy eating habits and regular exercise will see him back for follow-up in 07/28/2024 (2) Acquired hypothyroidism: Code(s): E03.9 - Hypothyroidism, unspecified Category: Medical Plan: Continue with levothyroxine 224 mcg daily repeat levels again prior to appointment in July (3) Obstructive sleep apnea: Comment: A mild degree of sleep apnea. The AHI was 10/hr and oxygen trinity was 84%.started CPAP 07/2022, Code(s): G47.33 - Obstructive sleep apnea (adult) (pediatric) Category: Medical Plan: Continue with CPAP, weight loss against strongly recommended. Orders: Orders Alanine Aminotransferase Today E66.01 - Morbid (severe) obesity due to excess calories, E78.5 - Hyperlipidemia, unspecified, R73.01 - Impaired fasting glucose Free T4 (Free Thyroxine) Today E03.9 - Hypothyroidism, unspecified Basic Metabolic Panel Fasting Today E66.01 - Morbid (severe) obesity due to excess calories, E78.5 - Hyperlipidemia, unspecified, R73.01 - Impaired fasting glucose Lipid Panel Today E66.01 - Morbid (severe) obesity due to excess calories, E78.5 - Hyperlipidemia, unspecified, R73.01 - Impaired fasting glucose Aspartate Amino Transferase Today E66.01 - Morbid (severe) obesity due to excess calories, E78.5 - Hyperlipidemia, unspecified, R73.01 - Impaired fasting glucose Thyroid Peroxidase Antibodies Today E03.9 - Hypothyroidism, unspecified Thyroid Stimulating Hormone Today E03.9 - Hypothyroidism, unspecified Medications: Refilled phentermine must administer 2 hours after breakfast 15 mg PO DAILY 30 caps 2RF
[2024-06-04 11:35] VITALS: BP 112/84; PULSE 97; RESP 16; TEMP 36.7; O2SAT 97; BMI 44.7
--- OUTSIDE RECORDS SUMMARY | 2024-06-04 12:59 | XMS_ITS | Clinical Summary ---
Author Organization [facility] Address [address] [place] [address] Care Team Providers Care Impregnator Helper Name Role Phone Unavailable Primary Care Provider [...] Plan of Treatment Not on file Insurance [place] [facility] DENTAL GENERIC - DENTAL
== END 2024-06-04 11:54 | disposition home or self-care (01) ==
PROVIDERS: PCP Internal Medicine; Visit Provider Internal Medicine
DX: E03.9 Hypothyroidism, unspecified (principal); E66.01 Morbid (severe) obesity due to excess calories; Z68.41 Body mass index [BMI] 40.0-44.9, adult; G47.33 Obstructive sleep apnea (adult) (pediatric)

== ENCOUNTER → 2024-06-04 10:48 | Outpatient (BNVA) | payer OTHER, SELFPAY | PROVIDERS: PCP Internal Medicine; Visit Provider Internal Medicine | DX: E66.01 Morbid (severe) obesity due to excess calories (principal); Z68.41 Body mass index [BMI] 40.0-44.9, adult; E03.9 Hypothyroidism, unspecified; G47.33 Obstructive sleep apnea (adult) (pediatric); Z71.3 Dietary counseling and surveillance | CPT/HCPCS: 96127; 99212 ==

== ENCOUNTER 2024-06-12 10:58 | Outpatient (REF) | payer OTHER, SELFPAY ==
--- OUTSIDE RECORDS SUMMARY | 2024-06-12 13:17 | XMS_ITS | Clinical Summary ---
Author Organization [facility] Address [address] [place] [address] Care Team Providers Care Assistant Auditor Name Role Phone Unavailable Primary Care Provider [...] Plan of Treatment Not on file Insurance [place] [facility] GENER[facility] - DENTAL
[2024-06-12 14:05] LABS: Alanine Aminotransferase 37 U/L (0-40); Anion Gap 12 (12-20); Aspartate Amino Transferase 30 U/L (5-37); Blood Urea Nitrogen 13 mg/dL (9-16); Calcium 9.7 mg/dL (8.4-10.2); Carbon Dioxide 25 mmol/L (22-29); Chloride 106 mmol/L (96-108); Cholesterol 163 mg/dL (<200); Estimated Glomerular Filt Rate > 60; Glucose Fasting 94 mg/dL (60-99); HDL Cholesterol 32 mg/dL (>40); LDL Cholesterol Calculated 107 mg/dL (<100); Potassium 4.1 mmol/L (3.3-5.1); Sodium 139 mmol/L (135-145); Triglycerides 120 mg/dL (<150)
[2024-06-12 14:28] LABS: Free T4 (Free Thyroxine) 2.02 ng/dL (0.71-1.85); Thyroid Stimulating Hormone < 0.01 uIU/mL (0.32-4.0)
[2024-06-14 12:53] LABS: Thyroid Peroxidase Antibodies 295 IU/mL (<9)
== END 2024-06-12 10:59 | disposition home or self-care (01) ==
LOC: HO.HMGCLDS 10:58
PROVIDERS: PCP Internal Medicine; Visit Provider Internal Medicine
DX: E66.01 Morbid (severe) obesity due to excess calories (principal); E03.9 Hypothyroidism, unspecified; R73.01 Impaired fasting glucose; E78.5 Hyperlipidemia, unspecified
CPT/HCPCS: 36415; 80048; 80061; 84439; 84443; 84450; 84460; 86376

== ENCOUNTER 2024-07-31 11:47 | Outpatient (AMB) | payer OTHER, SELFPAY ==
[2024-07-31 11:58] VITALS: BP 124/86; PULSE 114; RESP 17; TEMP 36.6; O2SAT 97; BMI 44.3
--- NOTE | 2024-07-31 11:58 | A.OFFPC_ITS ---
Vital Signs 07/31/24 11:58 Height 5 ft 6 in Weight 274 lb 4 oz BMI 44.3 BP 124/86 Blood Pressure Location Lt brachial Position Sitting Respiration 17 Pulse 114 H Pulse Source Pulse Oximeter Temp 97.9 F Temp Source Oral Pulse Oximetry (%) 97 Oxygen Delivery Method Room Air Intake Visit Reasons: 2 months f/up Intake Note: Pt is here today for 2 month follow up. Allergies Penicillins Allergy (Unknown, Verified 07/31/24 12:07) hives Medication List - Last Reconciled 07/31/24 by Chayito Diaz MD [centrum dual action multi + mental focus 1 gummy PO DAILY] levothyroxine 200 mcg PO DAILY 1 month phentermine 15 mg PO DAILY vitamin D3-vitamin K2 25 mcg (1,000 unit)-90 mcg 1 tab PO DAILY Tobacco use date assessed: 07/31/24 Dental Screening Dental Screen Date: 07/31/24 Did you have a dental visit in the last 12 months?: No Did you have a dental problem in the last 6 months where you did not have access to dental care?: No Was dental information given to patient?: Patient has dentist HPI 2 months f/up HPI Details 48-year-old male with a morbid obesity, and hypothyroidism, here today for his follow-up. He was started on phentermine 15 mg once a day 2 hours after breakfast on last visit here proximally 2 months ago, has lost approximately 3 lb on it, despite following recommended diet but admits to not getting any regular exercise. Denies any side effects from taking the medication Latest thyroid levels however showed suppressed TSH and elevated free T4, currently taking levothyroxine 200 mcg daily [facility] Medical History Dyslipidemia Impaired fasting glucose Post-COVID syndrome Intellectual disability Morbid obesity History of depression History of migraine Obstructive sleep apnea Acquired hypothyroidism Surgical History Hx of colonoscopy Hx of laparoscopic gastric banding Family History Father Myocardial infarction CVD (cardiovascular disease) Mother No problems noted. Brother No problems noted. Brother No problems noted. 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 needs: No Hearing needs: No Vision needs: Yes Questionnaire Thrive Questionnaire Date Thrive assessed: 07/31/24 I am a: Patient What is your living situation today?: I choose not to answer this question Within the past 12 months, did the food you bought not last and you didn't have the money to get more?: I choose not to answer this question Within the past 12 months, did you worry whether your food would run out before you got money to buy more?: I choose not to answer this question Do you have trouble paying for medicines?: No Do you have trouble getting transportation to medical appointments?: No Do you have trouble paying your heating and electricity bill?: No Do you have trouble taking care of your child, family member or friend?: I choose not to answer this question Do you have trouble with day-to-day activities such as bathing, preparing meals, shopping, managing finances, etc.?: No Are you currently unemployed and looking for a job?: No Are you interested in more education?: No Please select the resources that you would like help with: None Currently or been in a relationship where the following occur: I choose not to answer THRIVE Score: 0 AUDIT C Alcohol Use Questionnaire (AUDIT-C) 1. How often do you have a drink containing alcohol?: Never 3. How often do you have six or more drinks on one occasion?: Never Total Score: 0 Score Reviewed/Action Taken: Yes ALEJANDRA-7 AMB Questionnaire ALEJANDRA-7 Date ALEJANDRA - 7 assessed: 07/31/24 Source: Developed by Drs. Tylor Strickland, Yamileth Last, Ean Gilmore and colleagues, with an educational lauri from [employer]. Review of Systems Const Denies night sweats Eyes Details: goes to [facility] Reports requires corrective lenses ENT Reports no additional complaints and Reports Normal hearing present Card Reports no additional complaints Resp Reports no additional complaints GI Denies abdominal pain, Denies hematochezia, Denies constipation, Denies heartburn, Denies diarrhea and Denies nausea Reports no additional complaints Musc Reports no additional complaints Skin/Breast Denies rash Neuro Reports Normal hearing present and Denies Abnormal speech present Endo Reports no additional complaints Physical exam (Primary Care) Vital Signs: Last Vital Signs Temp 97.9 F 07/31/24 11:58 Pulse 114 H 07/31/24 11:58 Resp 17 07/31/24 11:58 BP 124/86 07/31/24 11:58 Pulse Ox 97 07/31/24 11:58 Oxygen Delivery Method Room Air 07/31/24 11:58 BMI result Body Mass Index 44.3 Tobacco/Smoking Status: Tobacco use Status Tobacco use date assessed 07/31/24 07/31/24 12:02 Patient Tobacco Use Status Never used Tobacco 07/31/24 12:02 e-Cigarette/Vaping Use Never Used 07/31/24 12:02 Thrive Assessment: Date of Thrive Assessment Date Thrive assessed 07/31/24 07/31/24 12:02 Currently or been in a relationship where the following occur: I choose not to answer Const General: no acute distress Nutritional Appearance: obese morbidly obese Orientation/consciousness: patient oriented x3 HENMT General nose exam: Normal external nose present Mouth: oropharynx normal and moist mucous membranes Eyes General: appearance normal, both eyes and all related structures Neck Other: Thyroid non Palpable and nontender Neck: Yes full ROM, Yes no lymphadenopathy and Yes supple Resp Effort & Inspection: normal respiratory effort and able to speak in complete sentences Auscultation: clear to auscultation bilaterally Cardio Rate: regular rate Rhythm: regular rhythm Heart sounds: S1 normal heart sound present and S2 normal heart sound present GI Inspection: Yes Abdominal panniculus present and Yes obesity Palpation (GI): Soft to palpation, nontender and no masses Auscultation: normal bowel sounds Neuro General: patient oriented x3, gait normal, tone normal, moves all extremities, Normal light touch and pain sensation and no focal motor deficits Cranial nerves: Yes Normal hearing present Cognition (Neuro): normal cognition Speech: No Abnormal speech present Gait exam (Neuro): Normal gait present Motor exam (neuro): 5/5 motor strength present throughout Extrem General: Yes full ROM, Yes no joint enlargement, Yes no pedal edema and Yes normal gait Results Reviewed Results Reviewed: Name: Chele Knight Age/Sex: 48/M : 1975 Unit#: [id number] Attend Dr: Chayito Diaz MD Re06/12/24 Status: DEP REF [facility]: [facility]: SPEC : [id number] JD: 06/12/24 STATUS: COMP REQ : [id number] RECD: 06/12/24-[address]: Chayito Diaz MD COMP: 06/12/24 ENTERED: 06/12/[address]: ORDERED: Met Prof Fast, AST, ALT, Lipid Panel, Free T4, TSH Test Result Flag Reference Sodium 139 135-145 mmol/L Potassium 4.1 3.3-5.1 mmol/L CL 106 96-108 mmol/L CO2 25 22-29 mmol/L Gap 12 12-20 BUN 13 9-16 mg/dL Creat 0.91 0.5-1.4 mg/dL eGFR > 60 Chronic Kidney Disease: Estimated GFR < 60 mL/min/1.73m2 Severe Kidney Disease: Estimated GFR < 15 mL/min/1.73m2 FBS 94 60-99 mg/dL CA 9.7 8.4-10.2 mg/dL AST (GOT) 30 5-37 U/L ALT (GPT) 37 0-40 U/L Triglyceride 120 <150 mg/dL Desirable Triglyceride: less than 150 mg/dL Borderline High Triglyceride 150-199 mg/dL High Triglyceride: 200-499 mg/dL Very High Triglyceride: greater than or equal to 5OO mg/dL Cholesterol 163 <200 mg/dL Desirable Cholesterol: less than 200 mg/dL Borderline High Cholesterol: 200-239 mg/dL High Cholesterol: greater than 239 mg/dL LDL Calculated 107 H <100 mg/dL Desirable LDL: less than 100 mg/dL Near Optimal/Above Optimal LDL: 110-129 mg/dL Borderline High LDL: 130-159 mg/dL High LDL: 160-189 mg/dL Very High LDL: greater than or equal to 190 mg/dL HDL 32 L >40 mg/dL Desirable HDL: greater than 40 mg/dL Note: This HDL assay may give artificially low results in patients with liver disease. Free T4 2.02 H 0.71-1.85 ng/dL TSH 3rd Gen. < 0.01 L 0.32-4.0 uIU/mL TSH 3rd Generation ([facility]) Coding Level of Care Code Est Pt Level 4 (50286) Diagnoses Morbid obesity E66.01 Acquired hypothyroidism E03.9 Assessment & Plan Assessment & Plan (1) Morbid obesity: Code(s): E66.01 - Morbid (severe) obesity due to excess calories Category: Medical Plan: Will increase phentermine dose to 30 mg taken 1 tablet 2 hours after breakfast. Combined this with adherence to healthy eating habits and regular exercise. Will see him back for follow-up in 3 months (2) Acquired hypothyroidism: Code(s): E03.9 - Hypothyroidism, unspecified Category: Medical Plan: Decrease levothyroxine dose to 175 mcg taken once a day in a.m. an hour before breakfast, repeat another TSH, free T4 and T3 level in October 2024 prior to next follow-up visit. Orders: Orders Triiodothyronine T3 Free 10/12/24 E03.9 - Hypothyroidism, unspecified Thyroid Stimulating Hormone 10/12/24 E03.9 - Hypothyroidism, unspecified Free T4 (Free Thyroxine) 10/12/24 E03.9 - Hypothyroidism, unspecified Medications: New phentermine must administer 2 hours after breakfast 30 mg PO DAILY 30 caps 2RF E66.01 - Morbid (severe) obesity due to excess calories levothyroxine 175 mcg PO DAILY 30 tabs 3RF E03.9 - Hypothyroidism, unspecified, E66.01 - Morbid (severe) obesity due to excess calories Discontinued phentermine must administer 2 hours after breakfast Discontinued Reason: Patient no longer taking 15 mg PO DAILY 30 caps 2RF levothyroxine Taken a.m. an hour before breakfast and before any medicine or food intake Discontinued Reason: Doctor's Order 200 mcg PO DAILY 1 month 30 tabs 3RF
--- OUTSIDE RECORDS SUMMARY | 2024-07-31 14:15 | XMS_ITS | Clinical Summary ---
Author Organization [facility] Address [address] [place] [address] Care Team Providers Care Product Technician Name Role Phone Unavailable Primary Care Provider [...] Plan of Treatment Not on file [place] [facility] GENER[facility] - DENTAL
== END 2024-07-31 12:33 | disposition home or self-care (01) ==
LOC: HO.HMCC 11:48
PROVIDERS: PCP Internal Medicine; Visit Provider Internal Medicine
DX: E03.9 Hypothyroidism, unspecified (principal); E66.01 Morbid (severe) obesity due to excess calories; Z68.41 Body mass index [BMI] 40.0-44.9, adult

== ENCOUNTER → 2024-07-31 11:47 | Outpatient (BNVA) | payer OTHER, SELFPAY | PROVIDERS: PCP Internal Medicine; Visit Provider Internal Medicine | DX: E03.9 Hypothyroidism, unspecified (principal); E66.01 Morbid (severe) obesity due to excess calories; Z68.41 Body mass index [BMI] 40.0-44.9, adult; Z71.3 Dietary counseling and surveillance | CPT/HCPCS: 99212 ==

== ENCOUNTER 2024-11-02 09:15 | Outpatient (REF) | payer OTHER, SELFPAY ==
--- OUTSIDE RECORDS SUMMARY | 2024-11-02 09:17 | XMS_ITS | Clinical Summary ---
Author Organization [facility] Address [address] [place] [address] Care Team Providers Care Zoo Director Name Role Phone Unavailable Primary Care Provider [...] Plan of Treatment Not on file [place] [facility] D[facility] GENER[facility] - DENTAL
[2024-11-02 12:41] LABS: Free T4 (Free Thyroxine) 1.43 ng/dL (0.71-1.85); Thyroid Stimulating Hormone < 0.01 uIU/mL (0.32-4.0)
== END 2024-11-02 09:16 | disposition home or self-care (01) ==
LOC: HO.HMGCLDS 09:15
PROVIDERS: PCP Internal Medicine; Visit Provider Internal Medicine
DX: E03.9 Hypothyroidism, unspecified (principal); E66.01 Morbid (severe) obesity due to excess calories
CPT/HCPCS: 36415; 84439; 84443; 84481; 86376

== ENCOUNTER 2024-11-11 10:32 | Outpatient (AMB) | payer OTHER, SELFPAY ==
--- OUTSIDE RECORDS SUMMARY | 2024-11-11 11:18 | XMS_ITS | Clinical Summary ---
Author Organization [facility] Address [address] [place] [address] Care Team Providers Care Line Closer Name Role Phone Unavailable Primary Care Provider [...] Plan of Treatment Not on file [place] [facility] D[facility] GENER[facility] - DENTAL
[2024-11-11 11:49] VITALS: BP 122/80; PULSE 93; RESP 16; TEMP 36.3; O2SAT 98; BMI 42.9
--- NOTE | 2024-11-11 11:49 | MHC.PC.OV ---
Vital Signs 11/11/24 11:49 Height 5 ft 6 in Weight 266 lb BMI 42.9 BP 122/80 Blood Pressure Location Lt brachial Position Sitting Respiration 16 Pulse 93 Pulse Source Pulse Oximeter Temp 97.4 F Temp Source Oral Pulse Oximetry (%) 98 Oxygen Delivery Method Room Air Intake Visit Reasons: Follow-up weight/thyroid after fasting labs done Intake Note: Pt is here today for his f/u weight and thyriod after labs done Allergies Penicillins Allergy (Unknown, Verified 11/11/24 12:11) hives Medication List - Last Reconciled 11/11/24 by Chayito Diaz MD [centrum dual action multi + mental focus 1 gummy PO DAILY] levothyroxine 175 mcg PO DAILY phentermine 30 mg PO DAILY vitamin D3-vitamin K2 25 mcg (1,000 unit)-90 mcg 1 tab PO DAILY Tobacco use date assessed: 11/11/24 Dental Screening Dental Screen Date: 11/11/24 Did you have a dental visit in the last 12 months?: No Did you have a dental problem in the last 6 months where you did not have access to dental care?: No Was dental information given to patient?: Patient has dentist HPI Follow-up weight/thyroid after fasting labs done HPI Details - The patient is a 49-year-old male presenting with follow-up on thyroid management and weight management after starting phentermine. - Hyperthyroidism: The patient is on levothyroxine, with a recent adjustment from 175 mcg to 150 mcg due to suppressed thyroid levels and elevated T3. - Obesity: The patient has been on phentermine since April, with a weight reduction from 278 lbs to 266 lbs over six months, but has since plateaued, not experiencing any significant suppression of appetite now as compared to when he 1st started taking phentermine. - Obstructive Sleep Apnea: The patient's history of obstructive sleep apnea is being considered in the obesity management plan. - The patient reports yellowish thickening of toenails, suspected to be fungal, and referred to a oracle ebs developer. [facility] Medical History (Updated 11/11/24 @ 12:26 by Chayito Diaz MD) Toenail deformity Dyslipidemia Impaired fasting glucose Post-COVID syndrome Intellectual disability Morbid obesity History of depression History of migraine Obstructive sleep apnea Acquired hypothyroidism Surgical History Hx of colonoscopy Hx of laparoscopic gastric banding Family History Father Myocardial infarction CVD (cardiovascular disease) Mother No problems noted. Brother No problems noted. Brother No problems noted. 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 needs: No Hearing needs: No Vision needs: Yes Questionnaire Thrive Questionnaire Date Thrive assessed: 06/04/24 I am a: Patient What is your living situation today?: I choose not to answer this question Within the past 12 months, did the food you bought not last and you didn't have the money to get more?: I choose not to answer this question Within the past 12 months, did you worry whether your food would run out before you got money to buy more?: I choose not to answer this question Do you have trouble paying for medicines?: No Do you have trouble getting transportation to medical appointments?: No Do you have trouble paying your heating and electricity bill?: No Do you have trouble taking care of your child, family member or friend?: I choose not to answer this question Do you have trouble with day-to-day activities such as bathing, preparing meals, shopping, managing finances, etc.?: No Are you currently unemployed and looking for a job?: No Are you interested in more education?: No Please select the resources that you would like help with: None Currently or been in a relationship where the following occur: I choose not to answer THRIVE Score: 0 ALEJANDRA-7 AMB Questionnaire ALEJANDRA-7 Date ALEJANDRA - 7 assessed: 07/31/24 Source: Developed by Drs. Tylor Strickland, Yamileth Last, Ean Gilmore and colleagues, with an educational lauri from [employer]. Review of Systems Const Denies night sweats Eyes Details: goes to [facility] Reports requires corrective lenses ENT Reports no additional complaints and Reports Normal hearing present Card Reports no additional complaints Resp Reports no additional complaints GI Denies abdominal pain, Denies hematochezia, Denies constipation, Denies heartburn, Denies diarrhea and Denies nausea Reports no additional complaints Musc Reports no additional complaints Skin/Breast Denies rash Neuro Reports Normal hearing present and Denies Abnormal speech present Psych Reports no additional complaints Endo Reports no additional complaints John/Lymph Reports no additional complaints Physical exam (Primary Care) Vital Signs: Last Vital Signs Temp 97.4 F 11/11/24 11:49 Pulse 93 11/11/24 11:49 Resp 16 11/11/24 11:49 BP 122/80 11/11/24 11:49 Pulse Ox 98 11/11/24 11:49 Oxygen Delivery Method Room Air 11/11/24 11:49 BMI result Body Mass Index 42.9 Tobacco/Smoking Status: Tobacco use Status Tobacco use date assessed 11/11/24 11/11/24 11:55 Patient Tobacco Use Status Never used Tobacco 11/11/24 11:55 e-Cigarette/Vaping Use Never Used 11/11/24 11:55 Thrive Assessment: Date of Thrive Assessment Date Thrive assessed 06/04/24 11/11/24 11:55 Currently or been in a relationship where the following occur: I choose not to answer Const General: no acute distress Nutritional Appearance: obese morbidly obese Orientation/consciousness: patient oriented x3 HENMT General nose exam: Normal external nose present Mouth: oropharynx normal and moist mucous membranes Eyes General: appearance normal, both eyes and all related structures Neck Other: Thyroid non Palpable and nontender Neck: Yes full ROM, Yes no lymphadenopathy and Yes supple Resp Effort & Inspection: normal respiratory effort and able to speak in complete sentences Auscultation: clear to auscultation bilaterally Cardio Rate: regular rate Rhythm: regular rhythm Heart sounds: S1 normal heart sound present and S2 normal heart sound present GI Inspection: Yes Abdominal panniculus present and Yes obesity Palpation (GI): Soft to palpation, nontender and no masses Auscultation: normal bowel sounds Neuro General: patient oriented x3, gait normal, tone normal, moves all extremities, Normal light touch and pain sensation and no focal motor deficits Cranial nerves: Yes Normal hearing present Cognition (Neuro): normal cognition Speech: No Abnormal speech present Gait exam (Neuro): Normal gait present Motor exam (neuro): 5/5 motor strength present throughout Extrem General: Yes full ROM, Yes no joint enlargement, Yes no pedal edema and Yes normal gait Results Reviewed Results Reviewed: Name: Chele Knight Age/Sex: 49/M : 1975 Unit#: [id number] Attend Dr: Chayito Diaz MD Re11/02/24 Status: DEP REF Location: [facility] Disch: SPEC : [id number] JD: 11/02/24 STATUS: COMP REQ : [id number] RECD: 11/02/24-[address]: Chayito Diaz MD COMP: 11/02/241 ENTERED: 11/02/[address]: ORDERED: Free T4, TSH Test Result Flag Reference Free T4 1.43 0.71-1.85 ng/dL TSH 3rd Gen. < 0.01 L 0.32-4.0 uIU/mL Laboratory Tests 11/02/24 09:19 Free T3 4.4 H Coding Level of Care Code Est Pt Level 4 (00028) Diagnoses Acquired hypothyroidism E03.9 Obstructive sleep apnea G47.33 Morbid obesity E66.01 Impaired fasting glucose R73.01 Dyslipidemia E78.5 Toenail deformity L60.8 Assessment & Plan Assessment & Plan (1) Acquired hypothyroidism: Code(s): E03.9 - Hypothyroidism, unspecified Category: Medical (2) Obstructive sleep apnea: Comment: A mild degree of sleep apnea. The AHI was 10/hr and oxygen trinity was 84%.started CPAP 07/2022, Code(s): G47.33 - Obstructive sleep apnea (adult) (pediatric) Category: Medical (3) Morbid obesity: Code(s): E66.01 - Morbid (severe) obesity due to excess calories Category: Medical (4) Impaired fasting glucose: Code(s): R73.01 - Impaired fasting glucose Category: Medical (5) Dyslipidemia: Code(s): E78.5 - Hyperlipidemia, unspecified Category: Medical (6) Toenail deformity: Code(s): L60.8 - Other nail disorders Category: Medical Plan The levothyroxine dosage will be adjusted to 150 mcg to address the suppressed thyroid levels and elevated T3, recheck thyroid levels again in 2 months after adjustment of dose Will discontinue phentermine, with no significant weight loss seen after taking it for more than six-months. Will start on Zepbound at 2.5 mg injected once a week subcutaneously i to aid in weight loss as patient has morbid obesity and has obstructive sleep apnea and dyslipidemia reinforced importance of adhering to healthy eating habits and doing at least 150 minutes of moderate intensity exercise a week. Referral to a oracle ebs developer May for evaluation of possible fungal infection in both toenails Patient was informed and verbally consented to the use of an ambient scribe for clinic note documentation during this visit. Orders: Orders Thyroid Stimulating Hormone 2 Months E03.9 - Hypothyroidism, unspecified, E66.01 - Morbid (severe) obesity due to excess calories, E78.5 - Hyperlipidemia, unspecified, R73.01 - Impaired fasting glucose Free T4 (Free Thyroxine) 2 Months E03.9 - Hypothyroidism, unspecified, E66.01 - Morbid (severe) obesity due to excess calories, E78.5 - Hyperlipidemia, unspecified, R73.01 - Impaired fasting glucose Hemoglobin A1c 2 Months E03.9 - Hypothyroidism, unspecified, E66.01 - Morbid (severe) obesity due to excess calories, E78.5 - Hyperlipidemia, unspecified, R73.01 - Impaired fasting glucose Alanine Aminotransferase 2 Months E03.9 - Hypothyroidism, unspecified, E66.01 - Morbid (severe) obesity due to excess calories, E78.5 - Hyperlipidemia, unspecified, R73.01 - Impaired fasting glucose Triiodothyronine T3 Free 2 Months E03.9 - Hypothyroidism, unspecified, E66.01 - Morbid (severe) obesity due to excess calories, E78.5 - Hyperlipidemia, unspecified, R73.01 - Impaired fasting glucose Aspartate Amino Transferase 2 Months E03.9 - Hypothyroidism, unspecified, E66.01 - Morbid (severe) obesity due to excess calories, E78.5 - Hyperlipidemia, unspecified, R73.01 - Impaired fasting glucose Basic Metabolic Panel Fasting 2 Months E03.9 - Hypothyroidism, unspecified, E66.01 - Morbid (severe) obesity due to excess calories, E78.5 - Hyperlipidemia, unspecified, R73.01 - Impaired fasting glucose Referrals Podiatry Referral L60.8 - Other nail disorders Medications: New levothyroxine (Levo-T) 150 mcg PO DAILY 90 tabs 1RF E03.9 - Hypothyroidism, unspecified Zepbound (tirzepatide (weight loss)) Has been on phentermine now for the last 6 months combined with adherence to healthy eating habits and regular exercise, with no significant weight loss achieved. 2.5 mg (0.5 mL) subcut QWEEK 2 mL 2RF Morbid obesity 30 days NS E03.9 - Hypothyroidism, unspecified, E66.01 - Morbid (severe) obesity due to excess calories, E78.5 - Hyperlipidemia, unspecified, G47.33 - Obstructive sleep apnea (adult) (pediatric), R73.01 - Impaired fasting glucose Discontinued levothyroxine Discontinued Reason: Doctor's Order 175 mcg PO DAILY 30 tabs 3RF E03.9 - Hypothyroidism, unspecified, E66.01 - Morbid (severe) obesity due to excess calories phentermine must administer 2 hours after breakfast Discontinued Reason: Doctor's Order 30 mg PO DAILY 30 caps 2RF E66.01 - Morbid (severe) obesity due to excess calories
== END 2024-11-11 12:32 | disposition home or self-care (01) ==
LOC: HO.HMCC 10:33
PROVIDERS: PCP Internal Medicine; Visit Provider Internal Medicine
DX: E03.9 Hypothyroidism, unspecified (principal); G47.33 Obstructive sleep apnea (adult) (pediatric); E66.01 Morbid (severe) obesity due to excess calories; Z68.41 Body mass index [BMI] 40.0-44.9, adult; R73.01 Impaired fasting glucose; E78.5 Hyperlipidemia, unspecified; L60.8 Other nail disorders

== ENCOUNTER → 2024-11-11 10:32 | Outpatient (BNVA) | payer OTHER, SELFPAY | PROVIDERS: PCP Internal Medicine; Visit Provider Internal Medicine | DX: E66.01 Morbid (severe) obesity due to excess calories (principal); E03.9 Hypothyroidism, unspecified; G47.33 Obstructive sleep apnea (adult) (pediatric); L60.2 Onychogryphosis; Z68.41 Body mass index [BMI] 40.0-44.9, adult; R73.01 Impaired fasting glucose; E78.5 Hyperlipidemia, unspecified; Z79.899 Other long term (current) drug therapy | CPT/HCPCS: 99212 ==

== ENCOUNTER 2024-12-04 10:46 | Outpatient (AMB) | payer OTHER, SELFPAY ==
--- NOTE | 2024-12-04 10:58 | MHC.OFFVIS ---
Vital Signs 12/04/24 10:59 Height 5 ft 6 in Weight 263 lb BMI 42.4 BP 124/80 Blood Pressure Location Rt brachial Position Sitting Pulse 85 Pulse Source Pulse Oximeter Pulse Oximetry (%) 97 Oxygen Delivery Method Room Air Intake Visit Reasons: Follow up Intake Note: Patient presents follow up TREVON. Labs/Compliance in chart(85/90days, >=4hrs-87%, Average usage-5hr 45min, Med Pressure-5.5, Med Leaks-16.4, AHI-0.2). Accompanied by: Self / Same As Patient Allergies Penicillins Allergy (Unknown, Verified 12/04/24 11:04) hives HPI Comments Details: 49 y/o male patient presents for a follow up visit for sleep apnea, he is on cpap therapy. The home sleep study result was significant for a mild degree of sleep apnea. The AHI was 10/hr and oxygen trinity was 84%. TREVON Compliance Report 08/2024-11/2024 Total use is 85/90 days >4 hours 87%, Avg use is 5 hours and 45 min Med pressures 5.5, Med leaks 16.4, AHI is 0.2 He washes his mask, rinses hoses, changes filters and fills reservoir with water as needed. He recently moved and had issues without the AC he was unable to use the cpap a few times. He usually sleeps well with his cpap machine, and feels refreshed in the mornings as he has more energy during daytime. 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 He uses Excedrin OTC and they go away. Denies restless legs symptoms. He started using zepbound recently on 2.5mg subq weekly. Weight is elevated to 263 and BMI is 42.4. He is active, walks daily around the yard and stays hydrated. Denies restless legs symptoms. Mood, memory and diet are stable. [facility] Medical History Toenail deformity Dyslipidemia Impaired fasting glucose Post-COVID syndrome Intellectual disability Morbid obesity History of depression History of migraine Obstructive sleep apnea Acquired hypothyroidism Surgical History Hx of colonoscopy Hx of laparoscopic gastric banding Family History Father Myocardial infarction CVD (cardiovascular disease) Mother No problems noted. Brother No problems noted. Brother No problems noted. 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 needs: No Hearing needs: No Vision needs: Yes Physical Exam Vital Signs: Last Vital Signs Pulse 85 12/04/24 10:59 BP 124/80 12/04/24 10:59 Pulse Ox 97 12/04/24 10:59 Oxygen Delivery Method Room Air 12/04/24 10:59 BMI result Body Mass Index 42.4 Const General: cooperative, comfortable and no acute distress Nutritional Appearance: obese Orientation/consciousness: patient oriented x3 Eyes Pupils: Equal, round and reactive pupils present Neck Neck: Yes full ROM and Yes supple Resp Effort & Inspection: normal respiratory effort and able to speak in complete sentences Neuro General: patient oriented x3, gait normal and moves all extremities Cranial nerves: Yes CN's II-XII intact bilaterally, Yes Facial sensation intact/muscles of mastication intact, Yes Equal, round and reactive pupils present, Yes Normal accommodation reflex present, Yes Normal facial strength present, Yes Midline tongue present, Yes Symmetric palate elevation present, Yes Ability to bilaterally rotate head present and Yes Ability to bilaterally elevate shoulders present Cognition (Neuro): normal cognition Gait exam (Neuro): Normal gait present Motor exam (neuro): 5/5 motor strength present throughout and Normal motor muscle tone present throughout Coordination: [id number] test normal Psych Attitude: cooperative Thought process: Normal thought process present Thought content: Normal thought content present Insight: Good insight present (Psych) Judgement: Good judgement present (Psych) Results Reviewed Results Reviewed: TREVON Compliance Report 08/2024-11/2024 Total use is 85/90 days >4 hours 87%, Avg use is 5 hours and 45 min Med pressures 5.5, Med leaks 16.4, AHI is 0.2 He washes his mask, rinses hoses, changes filters and fills reservoir with water as needed. Assessment & Plan Assessment & Plan (1) Anemia: Code(s): D64.9 - Anemia, unspecified Category: Medical Qualifiers: Anemia type: unspecified type Qualified Code(s): D64.9 - Anemia, unspecified Plan TREVON continue cpap use and >4 hours nightly as pt. experiences refreshed sleep. Labs to r/o anemia and deficiencies. F/U in 6 months Orders: Orders Vitamin B12 and Folate Today D64.9 - Anemia, unspecified Methylmalonic Acid Today D64.9 - Anemia, unspecified, G47.9 - Sleep disorder, unspecified, R53.83 - Other fatigue Homocysteine Today D64.9 - Anemia, unspecified, G47.9 - Sleep disorder, unspecified, R53.83 - Other fatigue Vitamin B6 Today D64.9 - Anemia, unspecified Vitamin B1 Today D64.9 - Anemia, unspecified Ferritin Today D64.9 - Anemia, unspecified Coding Level of Care Code Est Pt Level 4 (93730) Diagnoses Anemia, unspecified type D64.9 Anemia type: unspecified type
[2024-12-04 10:59] VITALS: BP 124/80; PULSE 85; O2SAT 97; BMI 42.4
--- OUTSIDE RECORDS SUMMARY | 2024-12-04 11:40 | XMS_ITS | Clinical Summary ---
Author Organization [address] [facility] Address [address] [place] [address] Phone Care Team Providers Care [employer] Lieutenant Name Role Phone Chayito Diaz MD Primary Care Provider Social History Tobacco Use Types Packs/Day Years Used Date Smoking Tobacco: Never Assessed Sex and Gender Information Value Date Recorded Sex Assigned at Not on file Legal Sex Male 9:05 AM EDT Gender Identity Not on file Sexual Orientation Not on file Plan of Treatment Upcoming Encounters Date Type Department Care Team ([facility] st Contact Info) Description 01/23/2025 10:15 AM EDT Office Visit Orthopedic Surgery - [facility] [address] [facility] [address] [place] [id number] Bharath Stone, DPM [address] [place] [phone] Health Maintenance Due Date Last Done Comments DTaP,Tdap,and Td Vaccines (1 - Tdap) 08/06/1995 Hepatitis B Vaccines (1 of 3 - 19+ 3-dose series) 08/06/1995 COVID-19 Vaccine (2023-2 5 season) 2023 Depression Screening 04/10/2024 Cholesterol Screening (Lipid Panel) 11/14/2024 Colorectal Cancer Screening: Colonoscopy 11/14/2024 HIV Screening 11/14/2024 Hepatitis C Screening 11/14/2024 Medicare Annual Wellness Visit 11/14/2024 Social Influencers of Health Screening 11/14/2024 Influenza Vaccine (#1) 2024 HIB Vaccines Aged Out No longer eligi ble based on patient's age to complete this topic HPV Vaccines Aged Out No longer eligi ble based on patient's age to complete this topic Hepatitis A Vaccines Aged Out No long er eligible based on patient's age to complete this topic IPV Vaccines Aged Out No longer eligi ble based on patient's age to complete this topic MMR Vaccines Aged Out No longer eligi ble based on patient's age to complete this topic Meningococcal ACWY Vaccine Aged Out N o longer eligible based on patient's age to complete this topic Meningococcal B Vaccine Aged Out No l onger eligible based on patient's age to complete this topic Pneumococcal Vaccine: Pediat rics (0 to 5 Years) and At-Risk Patients (6 to 49 Years) Aged Out No longer eligible b ased on patient's age to complete this topic RSV Immunization Patients Un sneha 20 months Aged Out No longer eligible b ased on patient's age to complete this topic Varicella Vaccines Aged Out No longer eligible based on patient's age to complete this topic Insurance [employer] MEDICARE Member Subscriber Plan / Payer (Ef fective 2020-Present) Name:CHELE KNIGHT Relation to Subscriber:Self Name:Chele Knight Payer ID:[id number] Group ID:[id number] Type:Not on file Address: [place] [address] [address] [id number] Care Teams [employer] Lieutenant Relationship Specialty Start Date End Date Chayito Diaz MD [address] [place] [address] PCP - General Internal Medicine 11/14/24
--- OUTSIDE RECORDS SUMMARY | 2024-12-04 11:40 | XMS_ITS | Clinical Summary ---
Author Organization [facility] Address [address] [place] [address] Care Team Providers Care Spot Checker Name Role Phone Unavailable Primary Care Provider [...] Plan of Treatment Not on file [place] [facility] DENTAL GENERIC - DENTAL
== END 2024-12-04 11:29 | disposition home or self-care (01) ==
LOC: HO.HSMS 10:47
PROVIDERS: PCP Internal Medicine; Visit Provider Physician Assistant Medical
DX: D64.9 Anemia, unspecified (principal)
CPT/HCPCS: 99214

== ENCOUNTER → 2024-12-04 10:46 | Outpatient (BNVA) | payer OTHER, SELFPAY | PROVIDERS: PCP Internal Medicine; Visit Provider Physician Assistant Medical | DX: G47.33 Obstructive sleep apnea (adult) (pediatric) (principal); G47.9 Sleep disorder, unspecified; D64.9 Anemia, unspecified; R53.83 Other fatigue; Z99.89 Dependence on other enabling machines and devices | CPT/HCPCS: 99212 ==

== ENCOUNTER 2024-12-21 09:13 | Outpatient (REF) | payer OTHER, SELFPAY ==
--- OUTSIDE RECORDS SUMMARY | 2024-12-21 09:15 | XMS_ITS | Clinical Summary ---
Author Organization 175 [facility] Address [address] [place] [address] Phone Care Team Providers Care Parking Line Painter Name Role Phone Chayito Diaz MD Primary Care Provider Social History Tobacco Use Types Packs/Day Years Used Date Smoking Tobacco: Never Assessed Sex and Gender Information Value Date Recorded Sex Assigned at Not on file Legal Sex Male 9:05 AM EDT Gender Identity Not on file Sexual Orientation Not on file Plan of Treatment Upcoming Encounters Date Type Department Care Team ([facility] Contact Info) Description 01/23/2025 10:15 AM EDT Office Visit Orthopedic Surgery [facility] [address] [phone] Bharath Stone, DPM [address] [phone] Health Maintenance Due Date Last Done Comments DTaP,Tdap,and Td Vaccines (1 - Tdap) 08/06/1995 Hepatitis B Vaccines (1 of 3 - 19+ 3-dose series) 08/06/1995 Depression Screening 04/10/2024 Cholesterol Screening (Lipid Panel) 11/14/2024 Colorectal Cancer Screening: Colonoscopy 11/14/2024 HIV Screening 11/14/2024 Hepatitis C Screening 11/14/2024 Medicare Annual Wellness Visit 11/14/2024 Social Influencers of Health Screening 11/14/2024 COVID-19 Vaccine (1 - 2023-2 5 season) 2024 Influenza Vaccine (#1) 2024 HIB Vaccines Aged [...] ID:[id number] Group ID:[id number] Type:Not on file Address: [place] [address] [address] [phone] Care Teams Parking Line Painter Relationship Specialty Start Date End Date Chayito Diaz MD [address] [place] [phone] PCP - General Internal Medicine 11/14/24
[2024-12-21 11:34] LABS: Hemoglobin A1C 170.4559 umol/L; Total Hemoglobin (HGBA1C) 4455.2143 umol/L
[2024-12-21 11:47] LABS: Alanine Aminotransferase 27 U/L (0-40); Anion Gap 11 (12-20); Aspartate Amino Transferase 25 U/L (5-37); Blood Urea Nitrogen 12 mg/dL (9-16); Calcium 9.2 mg/dL (8.4-10.2); Carbon Dioxide 27 mmol/L (22-29); Chloride 104 mmol/L (96-108); Estimated Glomerular Filt Rate > 60; Potassium 4.4 mmol/L (3.3-5.1); Sodium 138 mmol/L (135-145)
[2024-12-21 11:59] LABS: Free T4 (Free Thyroxine) 1.28 ng/dL (0.71-1.85)
[2024-12-21 12:04] LABS: Ferritin 50 ng/mL (20-250); Thyroid Stimulating Hormone 0.03 uIU/mL (0.32-4.0)
[2024-12-21 12:09] LABS: Folate 4.8 ng/mL (> or = 4.0); Vitamin B12 573 pg/mL (200-900)
== END 2024-12-21 09:14 | disposition home or self-care (01) ==
LOC: HO.HMGCLDS 09:13
PROVIDERS: PCP Internal Medicine; Referring Provider Internal Medicine; Visit Provider Physician Assistant Medical
DX: R73.01 Impaired fasting glucose (principal); D64.9 Anemia, unspecified; E78.5 Hyperlipidemia, unspecified; E03.9 Hypothyroidism, unspecified; E66.01 Morbid (severe) obesity due to excess calories
CPT/HCPCS: 36415; 80048; 82607; 82728; 82746; 82947; 83036; 84207; 84425; 84439; 84443; 84450; 84460; 84481; 86376

== ENCOUNTER 2024-12-28 08:37 | Outpatient (REF) | payer OTHER, SELFPAY ==
--- OUTSIDE RECORDS SUMMARY | 2024-12-28 08:42 | XMS_ITS | Clinical Summary ---
Author Organization 175 [facility] Address [address] [place] [address] Phone Care Team Providers Care Media Coordinator Name Role Phone Chayito Diaz MD Primary Care Provider Social History Tobacco Use Types Packs/Day Years Used Date Smoking Tobacco: Never Assessed Sex and Gender Information Value Date Recorded Sex Assigned at Not on file Legal Sex Male 9:05 AM EDT Gender Identity Not on file Sexual Orientation Not on file Plan of Treatment Upcoming Encounters Date Type Department Care Team ([facility] st Contact Info) Description 01/23/2025 10:15 AM EDT Office Visit Orthopedic Surgery [facility] [address] [phone] Bharath Stone, DPM [address] [phone] Health Maintenance Due Date Last [...] 5 season) 2024 Influenza Vaccine (#1) 2024 RSV Immunization Adult Patie nts (1 - 1-dose 75+ series) 08/06/2051 HIB Vaccines Aged Out No longer eligi [...] patient's age to complete this topic Insurance [facility] MEDICARE Member Subscriber Plan / Payer (Ef fective 2020-Present) Name:CHELE KNIGHT Relation to Subscriber:Self Name:Chele Knight Payer ID:[id number] Group ID:[id number] Type:Not on file Address: [place] [address] [address] [phone] Care Teams Media Coordinator Relationship Specialty Start Date End Date Chayito Diaz MD [address] [place] [address] PCP - General Internal Medicine 11/14/24
[2024-12-28 10:16] LABS: Free T4 (Free Thyroxine) 1.40 ng/dL (0.71-1.85); Thyroid Stimulating Hormone 0.02 uIU/mL (0.32-4.0)
[2024-12-28 10:33] LABS: Folate 4.8 ng/mL (> or = 4.0); Vitamin B12 562 pg/mL (200-900)
== END 2024-12-28 08:38 | disposition home or self-care (01) ==
LOC: HO.LAB 08:37
PROVIDERS: Absent Provider Internal Medicine; PCP Internal Medicine; Visit Provider Physician Assistant Medical
DX: R53.83 Other fatigue (principal); E03.9 Hypothyroidism, unspecified; G47.9 Sleep disorder, unspecified; D64.9 Anemia, unspecified
CPT/HCPCS: 36415; 82607; 82746; 83090; 83921; 84207; 84425; 84439; 84443; 84481

== ENCOUNTER 2025-01-16 10:48 | Outpatient (AMB) | payer OTHER, SELFPAY ==
[2025-01-16 11:33] VITALS: BP 124/98; PULSE 79; RESP 16; TEMP 36.6; O2SAT 100; BMI 42.8
--- NOTE | 2025-01-16 11:33 | MHC.PC.OV ---
Vital Signs 01/16/25 11:33 Height 5 ft 6 in Weight 265 lb BMI 42.8 BP 124/98 H Blood Pressure Location Lt brachial Position Sitting Respiration 16 Pulse 79 Pulse Source Pulse Oximeter Temp 97.9 F Temp Source Oral Pulse Oximetry (%) 100 Oxygen Delivery Method Room Air Intake Visit Reasons: 2m follow up zepbound Intake Note: Pt is here today for his 2mo. f/u wgt Allergies Penicillins Allergy (Unknown, Verified 01/20/25 02:46) hives Medication List - Last Reconciled 01/16/25 by Chayito Diaz MD [centrum dual action multi + mental focus 1 gummy PO DAILY] levothyroxine (Levo-T) 150 mcg PO DAILY vitamin D3-vitamin K2 25 mcg (1,000 unit)-90 mcg 1 tab PO DAILY Zepbound (tirzepatide (weight loss)) 2.5 mg (0.5 mL) subcut QWEEK 30 days NS Tobacco use date assessed: 01/16/25 Dental Screening Dental Screen Date: 01/16/25 Did you have a dental visit in the last 12 months?: No Was dental information given to patient?: Patient declined HPI 2m follow up zepbound HPI Details The patient is a 49-year-old male presenting with weight management concerns. He has been on Zepbound for approximately one and a half months, starting with a 2.5 mg dose. The patient reports a weight reduction from 274 pounds in July to 265 pounds currently, although he has gained 2 pounds since the last visit. The patient reports that Zepbound has been effective in reducing his appetite, but he acknowledges the need for increased physical activity to enhance weight loss. He has not experienced any side effects such as nausea, abdominal pain, or vision changes, which are potential side effects of the medication. The patient has a history of hypothyroidism, which is currently well-controlled with levothyroxine. His recent blood work indicates normal levels of vitamin B6, B1, B12, folic acid, and thyroid function. [facility] Medical History Toenail deformity Dyslipidemia Impaired fasting glucose Post-COVID syndrome Intellectual disability Morbid obesity History of depression History of migraine Obstructive sleep apnea Acquired hypothyroidism Surgical History Hx of colonoscopy Hx of laparoscopic gastric banding Family History Father Myocardial infarction CVD (cardiovascular disease) Mother No problems noted. Brother No problems noted. Brother No problems noted. 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 1. Little interest or pleasure in doing things: not at all 2. Feeling down, depressed, or hopeless: not at all 3. Trouble falling or staying asleep, or sleeping too much: not at all 4. Feeling tired or having little energy: not at all 5. Poor appetite or overeating: not at all 6. Feeling bad about yourself - or that you are a failure or have let yourself or your family down: not at all 7. Trouble concentrating on things, such as reading the newspaper or watching television: not at all 8. Moving or speaking so slowly that other people could have noticed. Or the opposite - being so fidgety or restless that you have been moving around a lot more than usual: not at all 9. Thoughts that you would be better off or of hurting yourself in some way: not at all Total score: 0 Depression Screening Interpretation: Negative Depression Screening Done: Yes Source: Developed by Drs. Tylor Strickland, Yamileth Last, Ean Gilmore and colleagues, with an educational lauri from [employer]. Thrive Questionnaire Date Thrive assessed: 06/04/24 I am a: Patient What is your living situation today?: I choose not to answer this question Within the past 12 months, did the food you bought not last and you didn't have the money to get more?: I choose not to answer this question Within the past 12 months, did you worry whether your food would run out before you got money to buy more?: I choose not to answer this question Do you have trouble paying for medicines?: No Do you have trouble getting transportation to medical appointments?: No Do you have trouble paying your heating and electricity bill?: No Do you have trouble taking care of your child, family member or friend?: I choose not to answer this question Do you have trouble with day-to-day activities such as bathing, preparing meals, shopping, managing finances, etc.?: No Are you currently unemployed and looking for a job?: No Are you interested in more education?: No Please select the resources that you would like help with: None Currently or been in a relationship where the following occur: I choose not to answer THRIVE Score: 0 AUDIT C Alcohol Use Questionnaire (AUDIT-C) 2. How many drinks containing alcohol do you have on a typical day when you are drinking?: 1 or 2 3. How often do you have six or more drinks on one occasion?: Never Total Score: 0 ALEJANDRA-7 AMB Questionnaire ALEJANDRA-7 Date ALEJANDRA - 7 assessed: 07/31/24 Source: Developed by Drs. Tylor Strickland, Yamileth Last, Ean Gilmore and colleagues, with an educational lauri from [employer]. Review of Systems Const All systems reviewed & are unremarkable except as noted in HPI and below ENT Reports Normal hearing present Neuro Reports Normal hearing present Physical exam (Primary Care) Vital Signs: Last Vital Signs Temp 97.9 F 01/16/25 11:33 Pulse 79 01/16/25 11:33 Resp 16 01/16/25 11:33 BP 124/98 H 01/16/25 11:33 Pulse Ox 100 01/16/25 11:33 Oxygen Delivery Method Room Air 01/16/25 11:33 BMI result Body Mass Index 42.8 Tobacco/Smoking Status: Tobacco use Status Tobacco use date assessed 01/16/25 01/16/25 11:41 Patient Tobacco Use Status Never used Tobacco 01/16/25 11:37 e-Cigarette/Vaping Use Never Used 01/16/25 11:37 PHQ-9: PHQ-9 Score PHQ-9: Total score 0 01/16/25 11:57 Depression Screening Interpretation: Negative Thrive Assessment: Date of Thrive Assessment Date Thrive assessed 06/04/24 01/16/25 11:37 Currently or been in a relationship where the following occur: I choose not to answer Const General: no acute distress Nutritional Appearance: obese morbidly obese Orientation/consciousness: patient oriented x3 Neck Other: Thyroid non Palpable and nontender Neck: Yes full ROM, Yes no lymphadenopathy and Yes supple Resp Effort & Inspection: normal respiratory effort and able to speak in complete sentences Auscultation: clear to auscultation bilaterally Cardio Rate: regular rate Rhythm: regular rhythm Heart sounds: S1 normal heart sound present and S2 normal heart sound present GI Inspection: Yes Abdominal panniculus present and Yes obesity Palpation (GI): Soft to palpation, nontender and no masses Auscultation: normal bowel sounds Neuro General: patient oriented x3, gait normal, tone normal, moves all extremities, Normal light touch and pain sensation and no focal motor deficits Cranial nerves: Yes Normal hearing present Cognition (Neuro): normal cognition Gait exam (Neuro): Normal gait present Motor exam (neuro): 5/5 motor strength present throughout Extrem General: Yes full ROM, Yes no joint enlargement, Yes no pedal edema and Yes normal gait Coding Level of Care Code Est Pt Level 4 (20947) Complex EM visit Add On G2211 Diagnoses Morbid obesity E66.01 Acquired hypothyroidism E03.9 Obstructive sleep apnea G47.33 Assessment & Plan Assessment & Plan (1) Morbid obesity: Code(s): E66.01 - Morbid (severe) obesity due to excess calories Category: Medical Plan: Tolerating Zepbound 2.5 mg mg weekly but no significant weight loss noted. Will increase dose to Zepbound 5 mg once a week. , continue with adherence to healthy eating habits and regular exercise. Will see him back for follow-up in April 2025 (2) Acquired hypothyroidism: Code(s): E03.9 - Hypothyroidism, unspecified Category: Medical Plan: Could continue on levothyroxine 150 mcg (3) Obstructive sleep apnea: Comment: A mild degree of sleep apnea. The AHI was 10/hr and oxygen trinity was 84%.started CPAP 07/2022, Code(s): G47.33 - Obstructive sleep apnea (adult) (pediatric) Category: Medical Plan: Continue with CPAP Orders: Orders Thyroid Stimulating Hormone 04/11/25 E03.9 - Hypothyroidism, unspecified, E66.01 - Morbid (severe) obesity due to excess calories, E78.5 - Hyperlipidemia, unspecified, G47.33 - Obstructive sleep apnea (adult) (pediatric), R73.01 - Impaired fasting glucose Free T4 (Free Thyroxine) 04/11/25 E03.9 - Hypothyroidism, unspecified, E66.01 - Morbid (severe) obesity due to excess calories, E78.5 - Hyperlipidemia, unspecified, G47.33 - Obstructive sleep apnea (adult) (pediatric), R73.01 - Impaired fasting glucose Lipid Panel 04/11/25 E03.9 - Hypothyroidism, unspecified, E66.01 - Morbid (severe) obesity due to excess calories, E78.5 - Hyperlipidemia, unspecified, G47.33 - Obstructive sleep apnea (adult) (pediatric), R73.01 - Impaired fasting glucose Comprehensive [place]. Panel Fast 04/11/25 E03.9 - Hypothyroidism, unspecified, E66.01 - Morbid (severe) obesity due to excess calories, E78.5 - Hyperlipidemia, unspecified, G47.33 - Obstructive sleep apnea (adult) (pediatric), R73.01 - Impaired fasting glucose Triiodothyronine T3 Free 04/11/25 E03.9 - Hypothyroidism, unspecified, E66.01 - Morbid (severe) obesity due to excess calories, E78.5 - Hyperlipidemia, unspecified, G47.33 - Obstructive sleep apnea (adult) (pediatric), R73.01 - Impaired fasting glucose Medications: New Zepbound (tirzepatide (weight loss)) 5 mg (0.5 mL) subcut QWEEK 2 mL 2RF NS E66.01 - Morbid (severe) obesity due to excess calories, E78.5 - Hyperlipidemia, unspecified, G47.33 - Obstructive sleep apnea (adult) (pediatric), R73.01 - Impaired fasting glucose Discontinued Zepbound (tirzepatide (weight loss)) Has been on phentermine now for the last 6 months combined with adherence to healthy eating habits and regular exercise, with no significant weight loss achieved. Discontinued Reason: Doctor's Order 2.5 mg (0.5 mL) subcut QWEEK 2 mL 2RF Morbid obesity 30 days NS E03.9 - Hypothyroidism, unspecified, E66.01 - Morbid (severe) obesity due to excess calories, E78.5 - Hyperlipidemia, unspecified, G47.33 - Obstructive sleep apnea (adult) (pediatric), R73.01 - Impaired fasting glucose
== END 2025-01-16 12:26 | disposition home or self-care (01) ==
LOC: HO.HMCC 10:49
PROVIDERS: PCP Internal Medicine; Visit Provider Internal Medicine
DX: E03.9 Hypothyroidism, unspecified (principal); E66.01 Morbid (severe) obesity due to excess calories; G47.33 Obstructive sleep apnea (adult) (pediatric); Z68.41 Body mass index [BMI] 40.0-44.9, adult

== ENCOUNTER → 2025-01-16 10:48 | Outpatient (BNVA) | payer OTHER, SELFPAY | PROVIDERS: PCP Internal Medicine; Visit Provider Internal Medicine | DX: E66.01 Morbid (severe) obesity due to excess calories (principal); Z68.41 Body mass index [BMI] 40.0-44.9, adult; E03.9 Hypothyroidism, unspecified; G47.33 Obstructive sleep apnea (adult) (pediatric); Z79.899 Other long term (current) drug therapy; Z99.89 Dependence on other enabling machines and devices; Z13.31 Encounter for screening for depression | CPT/HCPCS: 96127; 99212 ==